=== PATIENT | female | born 1950 | race Caucasian/White ===

== ENCOUNTER 2016-09-20 23:00 | Inpatient (IN) | payer MEDICARE ==
--- NOTE | ~2016-09-20 | DS ---
Discharge Summary [facility] [address] [place]. [address] NAME: LUIS ALFREDO KHAN : 48 STATUS : DIS IN PAT#: [id number] AGE: 65 ADM/REG DATE : 09/21/16 MR#: [id number] REPORT SERV DATE: 09/24/16 DICTATED BY: MODE AYALA DATE: 09/23/16 REPORT STATUS : Draft TRANSCRIBED BY: MODL DATE: 09/23/16 ADMISSION DATE: 09/21/2016 DISCHARGE DATE: 09/23/2016 DISCHARGE DIAGNOSES: 1. Acute kidney injury, most likely due to hypotension. 2. Toxic metabolic encephalopathy, most likely due to use of pain medications. 3. No evidence of urinary tract infection by culture. 4. Chronic pain syndrome. 5. Chronic obstructive pulmonary disease. 6. Coronary artery disease. 7. Hypertension. 8. Anxiety disorder. CONSULTANTS DURING THIS HOSPITALIZATION: None. INVASIVE PROCEDURES DONE DURING THIS HOSPITALIZATION: None. BRIEF HISTORY OF PRESENT ILLNESS: The patient is a 65-year-old female, presented with altered mental status and acute kidney injury, so she was admitted. For detailed history and physical exam, please see note dictated by Dr. Wilfrid Ventura on 09/21/2016. HOSPITAL COURSE: After being admitted to the hospital, this patient initially was thought to have a urinary tract infection. So, she was placed on IV Levaquin blood cultures were done, which remained negative. Urine culture was done which showed mixed a 100,000 colony-forming units of bacteria, but no evidence of any significant solitary pathogen. This patient's white count remained normal during this time. She was afebrile during this time as well. So, we have decided to discontinue her Levaquin. She did receive a total of three days of IV Levaquin here in the hospital. This patient's kidney function responded well to IV fluids and her blood pressure remained stable. Her creatinine today is 1.41 down from 2.88. Her BUN has normalized. Her baseline creatinine is about 1.2 to 1.3. She feels well enough. We did discontinue her angiotensin receptor jesenia in light of kidney injury as well as discontinued her Demadex and potassium because she did have hyperkalemia and hyponatremia which have all now resolved. This patient feels back to her baseline. We did discuss with the patient at length that her kidney injury and her hypotension with altered mental status are probably related to use of Demerol and Percocet. This patient was encouraged to follow up with her primary care physician as well as with her pain management physician for further adjustment of pain medications and hopefully decreasing the doses of these medications. Otherwise, she is being discharged in stable condition. DISCHARGE DISPOSITION: Home. DISCHARGE ACTIVITY: As tolerated. DISCHARGE DIET: Low-sodium diet. Discharge Summary [address] [place]. [address] NAME: LUIS ALFREDO KHAN : 48 STATUS : DIS IN PAT#: [id number] AGE: 65 ADM/REG DATE : 09/21/16 MR#: [id number] REPORT SERV DATE: 09/24/16 DICTATED BY: MODE AYALA DATE: 09/23/16 REPORT STATUS : Draft TRANSCRIBED BY: PALAK DATE: 09/23/16 DISCHARGE MEDICATIONS: Aspirin 81 mg once daily, Lipitor 40 mg once at bedtime, Wellbutrin XL 150 mg once daily, Coreg 12.5 mg twice daily, Plavix 75 mg once daily, vitamin B12 of 1000 mcg once daily, Aricept 5 mg p.o. once daily, Flonase one spray each nostril once daily, levothyroxine 125 mcg once daily, Ativan 1 mg three times daily, Singulair 10 mg once daily, Protonix 40 mg once daily, Paxil 30 mg once daily, Spiriva one capsule inhalation once daily, Ambien 5 mg once at bedtime, Demerol 50 mg twice daily, cranberry over-the- counter, Nitrostat 0.4 sublingual p.r.n. for chest pain, torsemide 10 mg once daily, hydralazine 25 mg every eight hours p.r.n. for blood pressure greater than 180 and the diastolic greater than 110, Proventil nebs daily p.r.n. for shortness of breath, stool softener. DISCHARGE FOLLOWUP: With Dr. Tatum in one week. With Dr. Jorge Gill, her pain management physician in two to three weeks. More than 35 minutes spent planning this patient's discharge, reconciling medications, writing prescriptions, discussing hospital care, and follow up with the patient and documenting this discharge. JOJO/PALAK Mode Ayala M.D. / [id number] CC: Dima Gomez MD
--- NOTE | ~2016-09-20 | HP ---
History And Physical [place] [address] [place]. [address] NAME: LUIS ALFREDO KHAN : [birth year] STATUS : ADM IN [facility]#: [id number] AGE: 65 ADM/REG DATE : 09/21/16 MR#: [id number] REPORT SERV DATE: 09/21/16 DICTATED BY: MARIO HAMPTON DATE: 09/21/16 REPORT STATUS : Draft TRANSCRIBED BY: PALAK DATE: 09/21/16 DATE OF ADMISSION: 09/20/2016 PRIMARY EQUIPMENT MECHANIC SPECIALIST: Zaki Calderon M.D., F.A.C.C. CHIEF COMPLAINT: Weakness, dysuria, confusion. HISTORY OF PRESENT ILLNESS: The patient is a 65-year-old female with history of coronary artery disease with prior PCI, complicated by pseudoaneurysm requiring pseudoaneurysm repair as well as hypertension, hyperlipidemia, recurrent urinary tract infections as well as hypothyroidism who presents to the emergency room today with multiple complaints with dysuria, weakness, as well as confusion. The patient was recently admitted to the Hospitalist Service early August of this year for volume overload, ultimately felt to be secondary to hypertensive urgency. The patient was discharged to [facility]. Since her discharge, the patient states that she has been doing well except for the last few days where she has noted some dysuria with urination as well as decreased urinary output and sensation of urinary retention. She has also had intermittent episodes of diarrhea for the past few weeks as well as a three-day history of occasional nausea and vomiting. She states that she has had good oral intake of food and water. Denies any fevers, chest pain, cough, sputum production, abdominal pain. The patient also reports some weakness fatigue and confusion. These are symptoms similar to what she has when she gets a urinary tract infection prompting their presentation to the emergency department. Initial evaluation in the emergency department for a BUN of 42, creatinine 2.8, potassium 6.0. She had urinalysis consist with urinary tract infection. The patient was subsequently admitted to the Hospitalist Service for further evaluation and management. REVIEW OF SYSTEMS: Comprehensive system otherwise negative unless listed in history of present illness. MEDICAL HISTORY: 1. Coronary disease with prior PCI. 2. Peripheral arterial disease with lower extremity revascularization. 3. Hypertension. 4. Hyperlipidemia. 5. Recurrent urinary tract infection. 6. Hypothyroidism. 7. COPD on 2 L of cannula. 8. History of atrial fibrillation, atrial flutter. 9. Neuropathy. 10.History of neurogenic bladder. 11.History of hydroureteronephrosis. 12.Left groin pseudoaneurysm status post repair. History And Physical [place] [address] [place]. [address] NAME: LUIS ALFREDO KHAN : [birth year] STATUS : ADM IN [facility]#: [id number] AGE: 65 ADM/REG DATE : 09/21/16 MR#: [id number] REPORT SERV DATE: 09/21/16 DICTATED BY: MARIO HAMPTON DATE: 09/21/16 REPORT STATUS : Draft TRANSCRIBED BY: PALAK DATE: 09/21/16 SURGICAL HISTORY: 1. Left groin pseudoaneurysm repair. 2. Appendectomy. 3. Cholecystectomy. 4. Hernia repair surgery. 5. Lumbar spinal fusion. ALLERGIES: ARE SULFA DRUGS, MORPHINE, AND CODEINE. HOME MEDICATIONS: 1. Albuterol one inhalation daily p.r.n. 2. Aspirin 81 mg daily. 3. Atorvastatin 40 mg at bedtime. 4. Wellbutrin 150 mg daily. 5. Carvedilol 12.5 mg b.i.d. 6. Plavix 75 mg daily. 7. Vitamin B12 1000 mcg daily. 8. Aricept 5 mg at bedtime. 9. Flonase one spray nasal daily. 10.Hydralazine 25 mg q.8 hours. 11.Synthroid 125 mcg daily. 12.Ativan 1 mg t.i.d. 13.Demerol 50 mg b.i.d. 14.Singulair 10 mg daily. 15.Nitroglycerin 0.4 mg sublingual p.r.n. 16.Percocet 10/325 one tab q.4 hours p.r.n. 17.Protonix 40 mg daily. 18.Paxil 30 mg daily. 19.Potassium chloride 20 mEq daily. 20.Spiriva one cap inhalation daily. 21.Demadex 10 mg daily. 22.Cranberry [id number] one tab daily. 23.Stool softener. 24.Diovan 320 mg daily. 25.Ambien 5 mg at bedtime. SOCIAL HISTORY: She denies any tobacco, alcohol, or illicits. FAMILY MEDICAL HISTORY: Notable for coronary artery disease as well as cancer in the immediate family members. LABS AND IMAGIN. White count 6.8, hemoglobin 13.3, hematocrit 41.3, and platelet count 241,000. 2. Sodium is 137, potassium 6.0, chloride 101, carbon dioxide 25, BUN 42, creatinine 2.8, glucose is 90, calcium is 8.5. 3. Urinalysis, specific gravity is 1.011 and hazy with moderate leukocyte esterase with 82 white blood cells per high-powered field with five epithelial cells. Lactic acid is History And Physical [place] [address] [place]. [address] NAME: LUIS ALFREDO KHAN : [birth year] STATUS : ADM IN [facility]#: [id number] AGE: 65 ADM/REG DATE : 09/21/16 MR#: [id number] REPORT SERV DATE: 09/21/16 DICTATED BY: MARIO HAMPTON DATE: 09/21/16 REPORT STATUS : Draft TRANSCRIBED BY: PALAK DATE: 09/21/16 1.7. 4. EKG per my review shows normal sinus rhythm with no evidence inferior Q-waves. She has some very mild T-wave prominence and possible peaking primarily in lead 1. 5. Chest x-ray per my review shows no acute cardiopulmonary abnormality. Does show some mild cardiomegaly. PHYSICAL EXAMINATION: VITAL SIGNS: Temperature is 98.6 degrees Fahrenheit, pulse is 102, respirations 16, saturating 97% on room air. Blood pressure 112/62. GENERAL: The patient is awake, alert, in no acute distress. Resting comfortably. She is a well-developed, well-nourished, elderly female. HEENT: Atraumatic and normocephalic. Slightly dry mucous membranes. Pupils are equal, round, reactive to light and accommodation. Extraocular muscles are intact. No scleral icterus. NECK: No jugular venous distention. No carotid bruits. CARDIAC: Regular rate and rhythm. No murmurs, rubs, or gallops. Normal S1, S2. LUNGS: Clear to auscultation bilaterally. No wheezes, rhonchi, or crackles. ABDOMEN: Obese, soft, nontender, nondistended. Good bowel sounds. No rebound, guarding, or rigidity. EXTREMITIES: Warm and well perfused with trace pedal edema. Skin is warm and dry. PSYCH: Affect appropriate. NEURO: Alert, oriented x3. Cranial nerves 2 through 12 grossly intact. Speech is normal. Gait not assessed. ASSESSMENT AND PLAN: This is a 65-year-old female, who presents with symptoms of dysuria, weakness, and confusion found to have evidence of urinary tract infection as well as acute kidney injury and hyperkalemia. PROBLEM LIST: 1. Acute kidney injury. 2. Hyperkalemia. 3. Urinary tract infection. 4. Encephalopathy. 5. Hypertension. PLAN: 1. Acute kidney injury. Etiology is unclear at this time. The patient does report some diarrhea and vomiting, concern for dehydration from GI losses. She also reports some symptoms of urinary retention as well as dysuria, also possibly contributing to her acute kidney injury. We will hold nephrotoxic medications including her diuretic and angiotensin receptor jesenia. Provide IV fluid hydration. Checking urine lytes as well as renal ultrasound. 2. Hyperkalemia, the patient may have some very mild T-wave changes on her EKG. We are temporizing in the emergency department with calcium gluconate, insulin glucose, and an amp of sodium bicarb. We will place her on IV fluid hydration and hold her potassium chloride supplementation as well as angiotensin receptor jesenia. Provide cardiac telemetry monitoring. 3. Urinary tract infection. The patient received IV Rocephin here in the emergency History And Physical [address] [address] NAME: LUIS ALFREDO KHAN : [birth year] STATUS : ADM IN [facility]#: [id number] AGE: 65 ADM/REG DATE : 09/21/16 MR#: [id number] REPORT SERV DATE: 09/21/16 DICTATED BY: MARIO HAMPTON DATE: 09/21/16 REPORT STATUS : Draft TRANSCRIBED BY: MODRhett DATE: 09/21/16 department. We will switch this over to IV Levaquin as review of her prior culture results shows that Levaquin will treat the Enterococcus faecalis as well as Klebsiella oxytoca and Proteus vulgaris that have grown in recent urine cultures. Followup urine culture here. 4. Encephalopathy, the patient and both state that her symptoms are very consistent with prior urinary tract infections. We will check a thyroid function studies, ammonia level, as well as a vitamin B12, try to limit sedating medications as much as possible. However, the patient is already adamantly asking for pain medicines for her chronic lower back pain. 5. Hypertension, continue patient's home antihypertensives except for her H2 receptor jesenia. We will place the patient on IV hydralazine p.r.n. 6. DVT prophylaxis heparin subcu. CODE STATUS: The patient wished to be full code. JCB/MODL Mario Hampton MD / [id number] CC: MD Zaki Melendez M.D., F.A.C.C.
[~2016-09-20 23:00] MED LIST: AMB10 PO; AMB5 PO; APRES25 PO; ARICEPT5 PO; ASAB PO; ATIVAN2 MG PO; ATV1 PO; B121000P IV; CATPATCH1 TOP; CEFT5 PO; CELEXA40 MG PO; CIP5 PO; COMBIVENT INH; COREG12 PO; COREG3 PO; COREG6 PO; CRANBERRY OTC PO; CRANBERRY PO; CRANBERY450 MG PO; CYANO1000T PO; CYTO5 PO; DEMA10T PO; DIOV160 PO; DIOVAN PO; DIOVAN320 MG PO; DITRO5 PO; FLONASE NAS; FOLIC PO; IMOD PO; INDO50 PO; KAPIDEX60 MG PO; KLOR-CON M2020 MEQ PO; L20 PO; L40 PO; L80 PO; LEUCOVOR CA5 MG PO; LEVOTHYROXIN100 MCG PO; LEVOTHYROXIN175 MCG PO; LIPITOR40 PO; LOPID6 PO; MACROBID PO; MAGOX4 PO; MEP50TAB PO; MUCINEX600 MG PO; NEXIUM40 PO; NITROFURANTOIN; NITROSTAT0.4 MG SL; NORV10 PO; NORV5 PO; PAX20 PO; PAXIL30 MG PO; PHENERGAN PO; PLAVIX PO; POTASSIUM; PR25 PO; PRILO PO; PRILOSEC40 MG PO; PROTONIX PO; PROVENTSOL INH; REG PO; SINGULAIR1 PO; SOMATAB PO; SPIRIVA INH; STOOL SOFTENER PO; SYN125 PO; SYNTHROID175 MCG PO; SYNTHROID200 MCG PO; TESSALON200 MG PO; TRAZ100 PO; TRAZODONE PO; TYLENOL 8 HR650 MG PO; VIST50 PO; VITD PO; WELL75 PO; WELLXL300 PO; XANAX2 MG PO; ZOCOR20 PO; ZOCOR40 PO
[2016-09-21 01:21] LABS: MEAN CORPUS HGB CONC 32.2 g/dL (32.0-36.0); MEAN CORPUSCULAR HEMOGLOB 30.2 pg (26.0-34.0); MEAN CORPUSCULAR VOLUME 93.7 fL (80-100); MEAN PLATELET VOLUME 9.6 fL (9.2-13.0); PLATELET COUNT 241 10/3/uL (150-400); RBC DISTRIBUTION WIDTH 14.5 % (12.0-16.0); WHITE BLOOD CELLS 6.8 10/3/uL (4.5-10.5)
[2016-09-21 01:22] LABS: ASCORBIC ACID (UR NOT ORDER) NEG (NEG); BILIRUBIN, URINE NEGATIVE (NEG); ER URINALYSIS TAT 0 Hrs 00 Mins; KETONE, URINE NEGATIVE (NEG); LEUKOCYTE ESTERASE(NOT OR MOD (NEG); NITRITE (URINE) NEG (NEG); WBC (NOT ORDERED) (RFLEX) 82 (0-5)
[2016-09-21 01:23] LABS: HEMATOCRIT 41.3 % (36.0-48.0); HEMOGLOBIN 13.3 g/dL (12.0-16.0); RED CELL COUNT 4.41 10/6/uL (4.0-5.6)
[2016-09-21 01:39] LABS: CALCIUM, SERUM 8.5 MG/DL (8.5-10.4); CHLORIDE, SERUM 101 MMOL/L (96-112); DIRECT BILIRUBIN 0.1 MG/DL (0.0-0.4); GLUCOSE, SERUM 90 MG/DL (60-99); INDIRECT BILIRUBIN(NOT ORDER) 0.2 MG/DL (0.1-0.9)
[2016-09-21 01:40] LABS: BUN (BLOOD UREA NITROGEN) 42 MG/DL (6-23); CO2 (CARBON DIOXIDE) 25 MMOL/L (24-34); CREATININE 2.88 MG/DL (0.55-1.02); GFR AFRICAN AMERICAN 19 ML/MIN (>=60); GFR NON AFRICAN AMERICAN 16 ML/MIN (>=60); LACTATE 1.7 MMOL/L (0.3-2.4); SODIUM, SERUM 137 MMOL/L (135-148); TOTAL BILIRUBIN 0.3 MG/DL (0-1.2)
[2016-09-21 01:44] LABS: BAND NEUTROPHILS 1 %; EOSINOPHILS 4 %; EOSINOPHILS ABSOLUTE (CALC) 0.27 10/3/uL (0.0-0.53); LYMPHOCYTES 20 %; LYMPHOCYTES ABSOLUTE (CALC) 1.36 10/3/uL (0.67-4.30); MONOCYTES 5 %; MONOCYTES ABSOLUTE (CALC) 0.34 10/3/uL (0.21-1.20); NEUTROPHILS ABSOLUTE (CALC) 4.83 10/3/uL (2.02-8.40); SEGMENTED NEUTROPHIL (0) 70 %; TOTAL NUCLEATED CELLS 100
[2016-09-21 01:45] LABS: DIFFERENTIAL ORDERED YES
[2016-09-21] MEDS ORDERED: PERCOCET 10/3251 TAB PO (03:59)
[2016-09-21 09:45] LABS: FREE T4 1.01 NG/DL (0.76-1.46)
[2016-09-21 09:46] LABS: FOLATE 13.4 NG/ML (>5.2); ULTRASENSITIVE TSH 1.52 MCIU/ML (0.358-3.740)
[2016-09-21 12:22] LABS: BASOPHILS 0.5 %; BASOPHILS ABSOLUTE 0.03 10/3/uL (0.0-0.16); EOSINOPHILS ABSOLUTE 0.29 10/3/uL (0.0-0.53); HEMATOCRIT 39.8 % (36.0-48.0); HEMOGLOBIN 12.9 g/dL (12.0-16.0); IMMATURE GRANULOCYTES 0.2 %; IMMATURE GRANULOCYTES ABSOLUTE 0.01 10/3/uL (0.0-0.11); LYMPHOCYTES 28.1 %; LYMPHOCYTES ABSOLUTE 1.62 10/3/uL (0.67-4.30); MEAN CORPUS HGB CONC 32.4 g/dL (32.0-36.0); MEAN CORPUSCULAR VOLUME 92.6 fL (80-100); MEAN PLATELET VOLUME 10.2 fL (9.2-13.0); MONOCYTES 5.9 %; MONOCYTES ABSOLUTE 0.34 10/3/uL (0.21-1.20); NEUTROPHILS 60.3 %; NEUTROPHILS ABSOLUTE 3.48 10/3/uL (2.02-8.40); RBC DISTRIBUTION WIDTH 14.4 % (12.0-16.0); WHITE BLOOD CELLS 5.8 10/3/uL (4.5-10.5)
[2016-09-21 12:23] LABS: MANUAL DIFF NO %; PLATELET COUNT 148 10/3/uL (150-400)
[2016-09-21 12:32] LABS: CALCIUM, SERUM 8.7 MG/DL (8.5-10.4); CHLORIDE, SERUM 104 MMOL/L (96-112); CO2 (CARBON DIOXIDE) 24 MMOL/L (24-34); PHOSPHORUS, SERUM 3.9 MG/DL (2.5-4.5); POTASSIUM, SERUM 5.4 MMOL/L (3.5-5.3); SODIUM, SERUM 137 MMOL/L (135-148)
[2016-09-21 12:33] LABS: BUN (BLOOD UREA NITROGEN) 35 MG/DL (6-23); CREATININE 2.26 MG/DL (0.55-1.02); GFR AFRICAN AMERICAN 25 ML/MIN (>=60); GFR NON AFRICAN AMERICAN 22 ML/MIN (>=60); GLUCOSE, SERUM 115 MG/DL (60-99)
[2016-09-22 08:22] LABS: ALBUMIN 2.7 G/DL (3.5-5.0); CHLORIDE, SERUM 109 MMOL/L (96-112); CO2 (CARBON DIOXIDE) 26 MMOL/L (24-34); CREATININE 2.08 MG/DL (0.55-1.02); GFR AFRICAN AMERICAN 28 ML/MIN (>=60); GFR NON AFRICAN AMERICAN 24 ML/MIN (>=60); POTASSIUM, SERUM 4.5 MMOL/L (3.5-5.3); SODIUM, SERUM 143 MMOL/L (135-148)
[2016-09-22 08:23] LABS: BUN (BLOOD UREA NITROGEN) 25 MG/DL (6-23); GLUCOSE, SERUM 88 MG/DL (60-99)
[2016-09-22 09:24] LABS: BASOPHILS 0.8 %; BASOPHILS ABSOLUTE 0.04 10/3/uL (0.0-0.16); EOSINOPHILS 4.4 %; EOSINOPHILS ABSOLUTE 0.21 10/3/uL (0.0-0.53); HEMATOCRIT 37.1 % (36.0-48.0); HEMOGLOBIN 11.9 g/dL (12.0-16.0); IMMATURE GRANULOCYTES 0.2 %; IMMATURE GRANULOCYTES ABSOLUTE 0.01 10/3/uL (0.0-0.11); LYMPHOCYTES 33.8 %; LYMPHOCYTES ABSOLUTE 1.62 10/3/uL (0.67-4.30); MANUAL DIFF NO %; MEAN CORPUS HGB CONC 32.1 g/dL (32.0-36.0); MEAN CORPUSCULAR VOLUME 93.5 fL (80-100); MEAN PLATELET VOLUME 9.7 fL (9.2-13.0); MONOCYTES 9.6 %; MONOCYTES ABSOLUTE 0.46 10/3/uL (0.21-1.20); NEUTROPHILS 51.2 %; NEUTROPHILS ABSOLUTE 2.45 10/3/uL (2.02-8.40); PLATELET COUNT 200 10/3/uL (150-400); RBC DISTRIBUTION WIDTH 14.6 % (12.0-16.0); RED CELL COUNT 3.97 10/6/uL (4.0-5.6); WHITE BLOOD CELLS 4.8 10/3/uL (4.5-10.5)
[2016-09-23 09:27] LABS: ALBUMIN 2.7 G/DL (3.5-5.0); BUN (BLOOD UREA NITROGEN) 15 MG/DL (6-23); CALCIUM, SERUM 7.9 MG/DL (8.5-10.4); CHLORIDE, SERUM 112 MMOL/L (96-112); CO2 (CARBON DIOXIDE) 28 MMOL/L (24-34); CREATININE 1.41 MG/DL (0.55-1.02); GFR AFRICAN AMERICAN 45 ML/MIN (>=60); GFR NON AFRICAN AMERICAN 39 ML/MIN (>=60); GLUCOSE, SERUM 108 MG/DL (60-99); PHOSPHORUS, SERUM 3.1 MG/DL (2.5-4.5); POTASSIUM, SERUM 4.2 MMOL/L (3.5-5.3); SODIUM, SERUM 145 MMOL/L (135-148)
[2017-01-20] MEDS ORDERED: WELL75 PO (16:40)
[2017-01-20] MEDS ORDERED: PROTONIX PO (16:40)
[2017-01-20] MEDS ORDERED: PLAVIX PO (16:40)
[2017-01-20] MEDS ORDERED: PERCOCET 10/3251 TAB PO ×2 (16:40→16:41)
[2017-01-20] MEDS ORDERED: PAXIL30 MG PO (16:41)
[2017-01-20] MEDS ORDERED: VIBRATAB100 MG PO (16:41)
[2017-01-20] MEDS ORDERED: ATV1 PO (16:41)
[2017-01-20] MEDS ORDERED: HALF81 PO (16:42)
[2017-01-20] MEDS ORDERED: CRANBERRY500 MG PO (16:42)
[2017-01-20] MEDS ORDERED: SYN125 PO (16:42)
[2017-01-20] MEDS ORDERED: SINGULAIR1 PO (16:42)
[2017-01-20] MEDS ORDERED: APRES25 PO (16:44)
[2017-01-20] MEDS ORDERED: COREG12 PO (16:44)
[2017-01-20] MEDS ORDERED: CYANO1000T PO (16:45)
[2017-01-20] MEDS ORDERED: FOLIC ACID PO (16:45)
[2017-01-20] MEDS ORDERED: LIPITOR40 PO (16:46)
[2017-01-20] MEDS ORDERED: AMB5 PO (16:46)
[2017-01-20] MEDS ORDERED: ARICEPT5 PO (16:46)
[2017-01-20] MEDS ORDERED: NITROSTAT0.4 MG SL (16:48)
[2017-01-20] MEDS ORDERED: DEMA10T PO (16:48)
[2017-01-20] MEDS ORDERED: FLONASE NAS (16:48)
[2017-01-20] MEDS ORDERED: ACET500CAP PO (16:49)
[2017-01-20] MEDS ORDERED: NYSTATPOW TOP (16:50)
[2017-01-20] MEDS ORDERED: MYCOSOINT TOP (16:50)
[2017-01-24] MEDS ORDERED: NORV5 PO (09:55)
[2017-01-24] MEDS ORDERED: CEFT5 PO (09:55)
[2017-01-24] MEDS ORDERED: MIRALAX POWDER1 PKT PO (10:00)
[2017-01-24] MEDS ORDERED: MELATONIN5 M1 PO (10:04)
[2017-02-03] MEDS ORDERED: DEMA10T PO (11:45)
[2017-02-03] MEDS ORDERED: NITROSTAT0.4 MG PO (11:45)
[2017-02-03] MEDS ORDERED: AMB5 PO (11:46)
[2017-02-03] MEDS ORDERED: ATV1 PO (11:46)
[2017-02-03] MEDS ORDERED: SINGULAIR1 PO (11:47)
[2017-02-03] MEDS ORDERED: PROTONIX PO (11:47)
[2017-02-03] MEDS ORDERED: COREG12 PO (11:47)
[2017-02-03] MEDS ORDERED: LIPITOR40 PO (11:47)
[2017-02-03] MEDS ORDERED: MONODOX100 MG PO (11:47)
[2017-02-03] MEDS ORDERED: ENDOCET1 TA3 PO (11:48)
[2017-02-03] MEDS ORDERED: PLAVIX PO (11:48)
[2017-02-03] MEDS ORDERED: SYN125 PO (11:48)
[2017-02-03] MEDS ORDERED: MELATONIN5 M1 PO (11:49)
[2017-02-03] MEDS ORDERED: VITAMIN B-121000 MC1 PO (11:49)
[2017-02-03] MEDS ORDERED: FOLIC ACID400 MC1 PO (11:49)
[2017-02-03] MEDS ORDERED: PAXIL30 MG PO (11:50)
[2017-02-03] MEDS ORDERED: CRANBERRY500 MG PO (11:50)
[2017-02-03] MEDS ORDERED: ASAB PO (11:51)
[2017-02-03] MEDS ORDERED: ACET500CAP PO (11:54)
[2017-02-03] MEDS ORDERED: FLONASE NAS (11:55)
[2017-02-03] MEDS ORDERED: SPIRIVA INH (11:56)
[2017-02-03] MEDS ORDERED: MIRALAX POWDER1 PKT PO (11:56)
[2017-02-03] MEDS ORDERED: WELL75 PO (11:59)
[2017-02-03] MEDS ORDERED: PAX20 PO (11:59)
[2017-02-03] MEDS ORDERED: NYSTATPOW TOP (12:00)
[2017-02-03] MEDS ORDERED: ARICEPT5 PO (12:02)
[2017-02-03] MEDS ORDERED: APRES25 PO (12:02)
[2017-02-05] MEDS ORDERED: ATEN25 (13:49)
[2017-02-08] MEDS ORDERED: ATV1 PO (16:16)
[2017-02-08] MEDS ORDERED: ATEN50 PO (16:16)
[2017-02-08] MEDS ORDERED: ARICEPT5 PO (16:16)
[2017-02-08] MEDS ORDERED: AMB5 PO (16:16)
[2017-02-08] MEDS ORDERED: FOLIC ACID400 MC1 PO (16:17)
[2017-02-08] MEDS ORDERED: LIPITOR40 PO (16:17)
[2017-02-08] MEDS ORDERED: ZOFRAN4 PO (16:19)
[2017-02-08] MEDS ORDERED: PERCOCET 10/3251 TAB PO (16:19)
[2017-02-08] MEDS ORDERED: PLAVIX PO (16:19)
[2017-02-08] MEDS ORDERED: LEVOTHYROXIN125 MCG PO (16:20)
[2017-02-08] MEDS ORDERED: SINGULAIR1 PO (16:20)
[2017-02-08] MEDS ORDERED: PROTONIX PO (16:20)
[2017-02-08] MEDS ORDERED: CRANBERRY500 MG PO (16:20)
[2017-02-08] MEDS ORDERED: DEMA10T PO (16:20)
[2017-02-08] MEDS ORDERED: WELL75 PO (16:21)
[2017-02-08] MEDS ORDERED: CYANO1000T PO (16:21)
[2017-02-08] MEDS ORDERED: ACET500CAP PO (16:21)
[2017-02-08] MEDS ORDERED: PAX20 PO (16:21)
[2017-02-08] MEDS ORDERED: NYSTATPOW TOP (16:22)
[2017-02-08] MEDS ORDERED: SPIRIVA INH (16:22)
[2017-02-08] MEDS ORDERED: FLONASE NAS (16:28)
[2017-02-08] MEDS ORDERED: VIBRATAB100 MG PO (16:30)
[2017-02-08] MEDS ORDERED: APRES25 PO (16:30)
[2017-02-08] MEDS ORDERED: MIRALAX POWDER1 PKT PO (16:30)
[2017-02-08] MEDS ORDERED: HALF81 PO (16:30)
[2017-02-08] MEDS ORDERED: MELATONIN5 M1 PO (16:31)
[2017-02-08] MEDS ORDERED: NITROSTAT0.4 MG SL (16:31)
[2017-02-10] MEDS ORDERED: AUG875 PO (16:35)
[2017-02-14] MEDS ORDERED: AUG875 PO (17:39)
[2017-02-15] MEDS ORDERED: NORV5 PO (17:12)
[2017-03-24] MEDS ORDERED: ABILIFY5 PO (13:34)
[2017-04-11] MEDS ORDERED: AMB5 PO (23:00)
[2017-04-11] MEDS ORDERED: PAX20 PO (23:01)
[2017-04-12] MEDS ORDERED: SINGULAIR1 PO (14:40)
[2017-04-12] MEDS ORDERED: DEMA10T PO (14:40)
[2017-04-14] MEDS ORDERED: DURICEF PO (11:17)
[2017-04-14] MEDS ORDERED: MIRALAX POWDER1 PKT PO (11:18)
[2017-04-14] MEDS ORDERED: NEUR100 PO (11:19)
== END 2016-09-23 15:44 | disposition home or self-care (01) | DRG 682 ==
LOC: ER 23:00 → 2SO 09-21 04:48
PROVIDERS: Emergency Medicine; Internal Medicine
DX: N17.9 Acute kidney failure, unspecified (principal); G92 Toxic encephalopathy; I95.9 Hypotension, unspecified; J96.10 Chronic respiratory failure, unspecified whether with hypoxia or hypercapnia; E87.1 Hypo-osmolality and hyponatremia; E87.5 Hyperkalemia; J44.9 Chronic obstructive pulmonary disease, unspecified; I48.91 Unspecified atrial fibrillation; I48.92 Unspecified atrial flutter; N39.0 Urinary tract infection, site not specified; T40.2X5A Adverse effect of other opioids, initial encounter; N31.9 Neuromuscular dysfunction of bladder, unspecified; I25.10 Atherosclerotic heart disease of native coronary artery without angina pectoris; I10 Essential (primary) hypertension; E78.5 Hyperlipidemia, unspecified; E03.9 Hypothyroidism, unspecified; G89.4 Chronic pain syndrome; F41.9 Anxiety disorder, unspecified; Z95.1 Presence of aortocoronary bypass graft; Z98.890 Other specified postprocedural states; Z82.49 Family history of ischemic heart disease and other diseases of the circulatory system; Z80.9 Family history of malignant neoplasm, unspecified; Z95.5 Presence of coronary angioplasty implant and graft
CPT/HCPCS: 71010; 76775; 80048; 80069; 81001; 82140; 82247; 82248; 82570; 82607; 82746; 83605; 83935; 84300; 84439; 84443; 85007; 85025; 85027; 87040; 87086; 93005; 96365; 96375; 99285; A9270-GY; J0610; J1956; J2405

== ENCOUNTER 2016-10-05 09:23 | Observation (INO) | payer MEDICARE, OTHER ==
--- NOTE | ~2016-10-05 | DS ---
Discharge Summary [facility] [address] [place]. [address] NAME: LUIS ALFREDO KHAN : 48 STATUS : DIS Kathleen PAT#: [id number] AGE: 65 ADM/REG DATE : 10/05/16 MR#: [id number] REPORT SERV DATE: 10/07/16 DICTATED BY: JR. MOSER WILLIAM JOHN DATE: 10/06/16 REPORT STATUS : Draft TRANSCRIBED BY: PALAK DATE: 10/06/16 ADMISSION DATE: 10/05/2016 DISCHARGE DATE: 10/06/2016 DISCHARGE DIAGNOSES: 1. Altered mental status. 2. Urinary tract infection. 3. Coronary artery disease with a history of percutaneous coronary intervention. 4. Chronic peripheral arterial disease. 5. Hypertension. 6. Hyperlipidemia. 7. Oxygen-dependent chronic obstructive pulmonary disease. 8. Hypokalemia. OPERATIONS/PROCEDURES AND TREATMENTS: Include: 1. Portable chest x-ray done 10/05/2016, which showed stable cardiac size with increased pulmonary venous congestion and left basilar atelectasis. 2. Urine culture done 10/05/2016, which was sterile at one day. 3. Urinalysis done on presentation, which showed 11 white blood cells per high-power field with small leukocyte esterase and negative nitrite. DISCHARGE MEDICATIONS: Include: 1. Aspirin 81 daily. 2. Lipitor 40 mg daily. 3. Wellbutrin 75 twice a day. 4. Coreg 12.5 twice a day. 5. Plavix 75 daily. 6. Vitamin B12 1000 mcg orally daily. 7. Aricept 5 mg daily. 8. Flonase nasal spray daily. 9. Synthroid 125 mcg daily. 10.Ativan 1 mg t.i.d. 11.Singulair 10 mg daily. 12.Protonix 40 daily. 13.Paxil 30 daily. 14.Spiriva HandiHaler as needed. 15.Demadex 10 daily. 16.Ambien 5 mg at the hour of sleep. 17.Nitroglycerin 0.4 mg sublingually as needed. 18.Hydralazine 25 mg every eight hours as needed. 19.Albuterol metered-dose inhaler one puff as needed. 20.Levaquin 750 mg orally daily for four days. 21.Percocet 5/325 one tablet every six hours as needed, dispensing 20 with no refills. 22.Norvasc 5 mg orally daily. HOSPITAL COURSE: The patient is a very pleasant 65-year-old white female, brought in by her Discharge Summary [address] [address] NAME: LUIS ALFREDO KHAN : 48 STATUS : DIS Kathleen PAT#: [id number] AGE: 65 ADM/REG DATE : 10/05/16 MR#: [id number] REPORT SERV DATE: 10/07/16 DICTATED BY: JR. MOSER WILLIAM JOHN DATE: 10/06/16 REPORT STATUS : Draft TRANSCRIBED BY: PALAK DATE: 10/06/16 because she was sleepier than usual and confused. The patient has been in and out of the hospital multiple times with various problems, including a femoral pseudoaneurysm, which was repaired as well as a wound. She has had encephalopathy in the setting of chronic pain syndrome on multiple sedating medicines. The patient's workup was significant for 11 white blood cells per high-power field. She was admitted to the hospital for urinary tract infection, started on Rocephin. Cultures so far negative. The patient is on Demerol at home. Her Demerol was withheld. On hospital day #2, the patient's mental status cleared. She felt she was stable for discharge home. I discussed sedating medicines with the family at length. Their desire is to wean the patient off Demerol and start her on Percocet at decreasing doses. I have written a prescription for six days worth of Percocet 5/325 until they see her pain clinic doctor next Tuesday. The patient's antibiotic was switched to Levaquin 750 mg for four more doses. In addition, the patient had fairly poorly controlled hypertension. I added Norvasc 5 mg orally daily. The patient will follow up with her primary care physician, Dr. Tatum in one to two weeks. For discharge exam and laboratory, please see daily progress note. DISCHARGE DIET: Regular. ACTIVITY: As tolerated. HUA/PALAK Cliff Moser Jr, MD / [id number] CC: Cliff Moser Jr, MD
--- NOTE | ~2016-10-05 | HP ---
History And Physical [address] [place]. [address] NAME: LUIS ALFREDO KHAN : 48 STATUS : ADM Kathleen PAT#: [id number] AGE: 65 ADM/REG DATE : 10/05/16 MR#: [id number] REPORT SERV DATE: 10/05/16 DICTATED BY: LISSET JIN DATE: 10/05/16 REPORT STATUS : Draft TRANSCRIBED BY: MODRhett DATE: 10/05/16 DATE OF ADMISSION: 10/05/2016 CHIEF COMPLAINT: Confusion. HISTORY OF PRESENT ILLNESS: The patient is a very pleasant, 65-year-old white female, who reports she was brought here by her who thought she was a little bit sleepier than usual and confused. She was just discharged from the hospital back on September 23 following a stay for metabolic encephalopathy. At that time, it was thought secondary to pain medications. She was ultimately discharged. Her reported that she had some increasing sleepiness and confusion over the last two day, although she denies it. She denies fevers or chills. She states she has not had any abdominal pain or chest pain. She denies cough, denies congestion, states she has been a little bit more sleepy, denies dysuria. Really, no real focal complaints today. PAST MEDICAL HISTORY: 1. CAD, history of PTCI. 2. Peripheral arterial disease. 3. Hypertension. 4. Hyperlipidemia. 5. Urinary tract infection. 6. Hypothyroidism. 7. COPD, on 2 L of O2. 8. Atrial fibrillation. 9. Peripheral neuropathy. 10.Neurogenic bladder. 11.Hydroureteronephrosis. 12.Left groin pseudoaneurysm following a cath status post repair. 13.Polypharmacy. 14.Anxiety. 15.Recent toxic metabolic encephalopathy. PAST SURGICAL HISTORY: 1. Left groin pseudoaneurysm repair. 2. Appendectomy. 3. Cholecystectomy. 4. Hernia repair. 5. Lumbar spinal fusion. ALLERGIES: SULFA, MORPHINE, AND CODEINE. HOME MEDICATIONS: 1. Albuterol inhaler. 2. Aspirin 81 daily. 3. Lipitor 40 daily. 4. Wellbutrin XL 150 daily. History And Physical [address] [place]. [address] NAME: LUIS ALFREDO KHAN : 48 STATUS : ADM Kathleen PAT#: [id number] AGE: 65 ADM/REG DATE : 10/05/16 MR#: [id number] REPORT SERV DATE: 10/05/16 DICTATED BY: LISSET JIN DATE: 10/05/16 REPORT STATUS : Draft TRANSCRIBED BY: PALAK DATE: 10/05/16 5. Carvedilol 12.5 b.i.d. 6. Plavix 75 daily. 7. Vitamin B12 daily. 8. Aricept 5 daily. 9. Flonase daily. 10.Hydralazine 25 q.8 hours. 11.Synthroid 125 daily. 12.Ativan one p.o. t.i.d. 13.Demerol 50 b.i.d. 14.Singulair 10 daily. 15.Nitroglycerin p.r.n. 16.Percocet 10/325 q.6 hours. 17.Protonix 40 daily. 18.Paxil 30 daily. 19.Potassium chloride daily. 20.Spiriva once daily. 21.Demadex 10 daily. 22.Cranberry daily. 23.Stool softener daily. 24.Ambien 5 at bedtime. SOCIAL HISTORY: She denies tobacco, she quit smoking about two years ago, but smoked two packs per day for 40+ years. No alcohol or illicits. She is . FAMILY HISTORY: Positive for CAD and also cancer. REVIEW OF SYSTEMS: A full ten-point review of systems obtained. Pertinent positives already mentioned in the HPI. PHYSICAL EXAMINATION: VITAL SIGNS: BP 170/79, saturations 96% on 2 L, temperature 98.9, pulse 58, respiratory rate 20. GENERAL: Morbidly obese white female HEENT: Normocephalic, atraumatic. Throat is clear. NECK: Supple. HEART: Regular rate and rhythm. LUNGS: Grossly clear. ABDOMEN: Soft, nontender, nondistended. EXTREMITIES: Warm and dry. Skin is intact. She has 2+ pulses at the feet. She does not have any significant peripheral edema. NEURO: She is alert. She is oriented to person, place, and time. PSYCH: She is appropriate. Her affect is normal. She has symmetrical strength and tone in all four extremities. LABORATORY AND X-RAY: Sodium 144, potassium 3.3, chloride 105, CO2 33, BUN and creatinine 11 and 1.20. Glucose 126, alcohol less than 3. Mag 1.7. Tylenol 3.2. Salicylate, negative. History And Physical [address] [place]. [address] NAME: LUIS ALFREDO KHAN : 48 STATUS : ADM Kathleen PAT#: [id number] AGE: 65 ADM/REG DATE : 10/05/16 MR#: [id number] REPORT SERV DATE: 10/05/16 DICTATED BY: LISSET JIN DATE: 10/05/16 REPORT STATUS : Draft TRANSCRIBED BY: PALAK DATE: 10/05/16 Troponin 0.03. LFTs were not done. Urine drug screen shows tricyclics and benzos. Urinalysis shows 11 whites. Chest x-ray shows cardiomegaly and some possible atelectasis in the left base. EKG shows sinus bradycardia. Current vitals: Her current blood pressure is 154/57. ASSESSMENT/PLAN: 1. Urinary tract infection with possible mild encephalopathy, although somewhat improved at this point. I am going to treat her in observation overnight with some Rocephin. We will hold her Demerol. We will continue her other medications. I suspect some of this too was due to polypharmacy. She could likely go home in the morning if she does well. 2. Coronary artery disease with history percutaneous coronary intervention. 3. Peripheral arterial disease history, stable, chronic. 4. Hypertension. Continue home medications. 5. Hyperlipidemia. Continue home medications. 6. Chronic obstructive pulmonary disease, on 2 L of O2. Continue O2. She does have some mild hypercapnia, but this is not new and she is well compensated. 7. Peripheral neuropathy. 8. Deep venous thrombosis prophylaxis with subcutaneous heparin. 9. Hypokalemia, replace. 10.Likely chronic kidney disease. Her creatinine really is not all from her baseline. She was 1.4 on 09/23; today, she is 1.25. We will simply follow this. 11.Disposition, pending above. CRISTOFER/PALAK Lisset Jin M.D. / [id number] CC: Cliff Moser Jr, MD Cecil Breetzke, MD
[~2016-10-05 09:23] MED LIST changes: +PERCOCET 10/3251 TAB PO
[2016-10-05 10:14] LABS: BASOPHILS 0.4 %; BASOPHILS ABSOLUTE 0.02 10/3/uL (0.0-0.16); EOSINOPHILS 4.3 %; EOSINOPHILS ABSOLUTE 0.22 10/3/uL (0.0-0.53); HEMATOCRIT 35.6 % (36.0-48.0); HEMOGLOBIN 11.5 g/dL (12.0-16.0); IMMATURE GRANULOCYTES 0.2 %; IMMATURE GRANULOCYTES ABSOLUTE 0.01 10/3/uL (0.0-0.11); LYMPHOCYTES 30.2 %; LYMPHOCYTES ABSOLUTE 1.53 10/3/uL (0.67-4.30); MEAN CORPUS HGB CONC 32.3 g/dL (32.0-36.0); MEAN CORPUSCULAR HEMOGLOB 29.3 pg (26.0-34.0); MEAN CORPUSCULAR VOLUME 90.8 fL (80-100); MEAN PLATELET VOLUME 9.2 fL (9.2-13.0); MONOCYTES 5.9 %; NEUTROPHILS ABSOLUTE 2.99 10/3/uL (2.02-8.40); PLATELET COUNT 193 10/3/uL (150-400); RBC DISTRIBUTION WIDTH 14.4 % (12.0-16.0); RED CELL COUNT 3.92 10/6/uL (4.0-5.6); WHITE BLOOD CELLS 5.1 10/3/uL (4.5-10.5)
[2016-10-05 10:27] LABS: MANUAL DIFF NO %
[2016-10-05 10:27] LABS: ALLENS TEST Pos; BE (BASE EXCESS) 5.7 MEQ/L (0 +/- 2.5); CARBOXYHEMOGLOBIN 1.1 % (0-3); DEVICE NC; HCO3 (ACTUAL BICARBONATE) 31.8 MEQ/L (23-27); HEMOBLOGIN CONTENT 11.9 G/DL (12-16); INSTRUMENT SERIAL # 8087; METHEMOGLOBIN 0.2 % (0-3); O2 CONTENT 15.8 VOL% (18-24); OPERATOR ID 35188; PCO2 (CO2 TENSION) 53 MMHG (35-45); PO2 (O2 TENSION) 77 MMHG (79-93); SAMPLE Arterial; pH 7.39 (7.37-7.43)
[2016-10-05 10:37] LABS: INTERNATIONAL NORMAL RATI 1.1 UNITS (-); PARTIAL THROMBO TIME 28.4 SEC (22.5-37.2); PROTIME (NOT ORD) 14.3 SEC (12.0-14.5)
[2016-10-05 10:42] LABS: ACETAMINOPHEN LEVEL (TYLENOL) 3.2 MCG/ML (10.0-20.0); BUN (BLOOD UREA NITROGEN) 11 MG/DL (6-23); CALCIUM, SERUM 7.9 MG/DL (8.5-10.4); CHLORIDE, SERUM 105 MMOL/L (96-112); CO2 (CARBON DIOXIDE) 33 MMOL/L (24-34); CREATININE 1.25 MG/DL (0.55-1.02); GFR AFRICAN AMERICAN 52 ML/MIN (>=60); GFR NON AFRICAN AMERICAN 45 ML/MIN (>=60); GLUCOSE, SERUM 126 MG/DL (60-99); POTASSIUM, SERUM 3.3 MMOL/L (3.5-5.3); SALICYLATE 1.9 MG/DL (-); SODIUM, SERUM 144 MMOL/L (135-148); TROPONIN I 0.03 NG/ML (<0.05)
[2016-10-05 10:43] LABS: ALCOHOL < 3 MG/DL (0); CHEST PAIN PROFILE TAT 0 Hrs 34 Mins
[2016-10-05 11:24] LABS: ASCORBIC ACID (UR NOT ORDER) NEG (NEG); BILIRUBIN, URINE NEGATIVE (NEG); ER URINALYSIS TAT 0 Hrs 09 Mins; KETONE, URINE NEGATIVE (NEG); LEUKOCYTE ESTERASE(NOT OR SMALL (NEG); NITRITE (URINE) NEG (NEG); WBC (NOT ORDERED) (RFLEX) 11 (0-5)
[2016-10-05 11:40] LABS: AMPHETAMINES (NOT ORD) NEG (NEG); BARBITURATES (NOT ORDERED NEG (NEG); BENZODIAZEPINES (NOT ORD) POS (NEG); CANNABINOIDS (THC) NEG (NEG); COCAINE (NOT ORDERED) NEG (NEG); OPIATES NEG (NEG); PHENCYCLIDINE(PCP) NEG (NEG); TRICYCLICS POS (NEG)
[2016-10-06 04:24] LABS: BASOPHILS 0.3 %; BASOPHILS ABSOLUTE 0.02 10/3/uL (0.0-0.16); EOSINOPHILS 3.3 %; EOSINOPHILS ABSOLUTE 0.21 10/3/uL (0.0-0.53); HEMATOCRIT 36.6 % (36.0-48.0); HEMOGLOBIN 11.9 g/dL (12.0-16.0); IMMATURE GRANULOCYTES 0.2 %; IMMATURE GRANULOCYTES ABSOLUTE 0.01 10/3/uL (0.0-0.11); LYMPHOCYTES 26.9 %; LYMPHOCYTES ABSOLUTE 1.71 10/3/uL (0.67-4.30); MEAN CORPUS HGB CONC 32.5 g/dL (32.0-36.0); MEAN CORPUSCULAR HEMOGLOB 30.1 pg (26.0-34.0); MEAN CORPUSCULAR VOLUME 92.4 fL (80-100); MEAN PLATELET VOLUME 9.3 fL (9.2-13.0); MONOCYTES ABSOLUTE 0.51 10/3/uL (0.21-1.20); NEUTROPHILS 61.3 %; PLATELET COUNT 214 10/3/uL (150-400); RBC DISTRIBUTION WIDTH 14.2 % (12.0-16.0); RED CELL COUNT 3.96 10/6/uL (4.0-5.6); WHITE BLOOD CELLS 6.4 10/3/uL (4.5-10.5)
[2016-10-06 04:28] LABS: MANUAL DIFF NO %
[2016-10-06 04:38] LABS: BUN (BLOOD UREA NITROGEN) 14 MG/DL (6-23); CALCIUM, SERUM 8.6 MG/DL (8.5-10.4); CHLORIDE, SERUM 104 MMOL/L (96-112); CO2 (CARBON DIOXIDE) 31 MMOL/L (24-34); CREATININE 1.16 MG/DL (0.55-1.02); GFR AFRICAN AMERICAN 57 ML/MIN (>=60); GFR NON AFRICAN AMERICAN 49 ML/MIN (>=60); POTASSIUM, SERUM 3.7 MMOL/L (3.5-5.3); SODIUM, SERUM 143 MMOL/L (135-148)
[2016-10-06 04:39] LABS: GLUCOSE, SERUM 97 MG/DL (60-99)
[2016-10-06] MEDS ORDERED: PERCOCET 10/3251 TAB PO (13:51)
[2016-10-06] MEDS ORDERED: NORV5 PO (13:51)
[2016-10-06] MEDS ORDERED: LEVAQUIN750 MG PO (13:51)
[2017-01-20] MEDS ORDERED: PROTONIX PO (16:40)
[2017-01-20] MEDS ORDERED: PLAVIX PO (16:40)
[2017-01-20] MEDS ORDERED: WELL75 PO (16:40)
[2017-01-20] MEDS ORDERED: PERCOCET 10/3251 TAB PO ×2 (16:40→16:41)
[2017-01-20] MEDS ORDERED: ATV1 PO (16:41)
[2017-01-20] MEDS ORDERED: VIBRATAB100 MG PO (16:41)
[2017-01-20] MEDS ORDERED: PAXIL30 MG PO (16:41)
[2017-01-20] MEDS ORDERED: HALF81 PO (16:42)
[2017-01-20] MEDS ORDERED: SINGULAIR1 PO (16:42)
[2017-01-20] MEDS ORDERED: SYN125 PO (16:42)
[2017-01-20] MEDS ORDERED: CRANBERRY500 MG PO (16:42)
[2017-01-20] MEDS ORDERED: COREG12 PO (16:44)
[2017-01-20] MEDS ORDERED: APRES25 PO (16:44)
[2017-01-20] MEDS ORDERED: CYANO1000T PO (16:45)
[2017-01-20] MEDS ORDERED: FOLIC ACID PO (16:45)
[2017-01-20] MEDS ORDERED: ARICEPT5 PO (16:46)
[2017-01-20] MEDS ORDERED: AMB5 PO (16:46)
[2017-01-20] MEDS ORDERED: LIPITOR40 PO (16:46)
[2017-01-20] MEDS ORDERED: DEMA10T PO (16:48)
[2017-01-20] MEDS ORDERED: NITROSTAT0.4 MG SL (16:48)
[2017-01-20] MEDS ORDERED: FLONASE NAS (16:48)
[2017-01-20] MEDS ORDERED: ACET500CAP PO (16:49)
[2017-01-20] MEDS ORDERED: MYCOSOINT TOP (16:50)
[2017-01-20] MEDS ORDERED: NYSTATPOW TOP (16:50)
[2017-01-24] MEDS ORDERED: NORV5 PO (09:55)
[2017-01-24] MEDS ORDERED: CEFT5 PO (09:55)
[2017-01-24] MEDS ORDERED: MIRALAX POWDER1 PKT PO (10:00)
[2017-01-24] MEDS ORDERED: MELATONIN5 M1 PO (10:04)
[2017-02-03] MEDS ORDERED: NITROSTAT0.4 MG PO (11:45)
[2017-02-03] MEDS ORDERED: DEMA10T PO (11:45)
[2017-02-03] MEDS ORDERED: AMB5 PO (11:46)
[2017-02-03] MEDS ORDERED: ATV1 PO (11:46)
[2017-02-03] MEDS ORDERED: COREG12 PO (11:47)
[2017-02-03] MEDS ORDERED: SINGULAIR1 PO (11:47)
[2017-02-03] MEDS ORDERED: PROTONIX PO (11:47)
[2017-02-03] MEDS ORDERED: LIPITOR40 PO (11:47)
[2017-02-03] MEDS ORDERED: MONODOX100 MG PO (11:47)
[2017-02-03] MEDS ORDERED: PLAVIX PO (11:48)
[2017-02-03] MEDS ORDERED: ENDOCET1 TA3 PO (11:48)
[2017-02-03] MEDS ORDERED: SYN125 PO (11:48)
[2017-02-03] MEDS ORDERED: FOLIC ACID400 MC1 PO (11:49)
[2017-02-03] MEDS ORDERED: VITAMIN B-121000 MC1 PO (11:49)
[2017-02-03] MEDS ORDERED: MELATONIN5 M1 PO (11:49)
[2017-02-03] MEDS ORDERED: PAXIL30 MG PO (11:50)
[2017-02-03] MEDS ORDERED: CRANBERRY500 MG PO (11:50)
[2017-02-03] MEDS ORDERED: ASAB PO (11:51)
[2017-02-03] MEDS ORDERED: ACET500CAP PO (11:54)
[2017-02-03] MEDS ORDERED: FLONASE NAS (11:55)
[2017-02-03] MEDS ORDERED: SPIRIVA INH (11:56)
[2017-02-03] MEDS ORDERED: MIRALAX POWDER1 PKT PO (11:56)
[2017-02-03] MEDS ORDERED: PAX20 PO (11:59)
[2017-02-03] MEDS ORDERED: WELL75 PO (11:59)
[2017-02-03] MEDS ORDERED: NYSTATPOW TOP (12:00)
[2017-02-03] MEDS ORDERED: APRES25 PO (12:02)
[2017-02-03] MEDS ORDERED: ARICEPT5 PO (12:02)
[2017-02-05] MEDS ORDERED: ATEN25 (13:49)
[2017-02-08] MEDS ORDERED: ATV1 PO (16:16)
[2017-02-08] MEDS ORDERED: AMB5 PO (16:16)
[2017-02-08] MEDS ORDERED: ARICEPT5 PO (16:16)
[2017-02-08] MEDS ORDERED: ATEN50 PO (16:16)
[2017-02-08] MEDS ORDERED: FOLIC ACID400 MC1 PO (16:17)
[2017-02-08] MEDS ORDERED: LIPITOR40 PO (16:17)
[2017-02-08] MEDS ORDERED: PERCOCET 10/3251 TAB PO (16:19)
[2017-02-08] MEDS ORDERED: PLAVIX PO (16:19)
[2017-02-08] MEDS ORDERED: ZOFRAN4 PO (16:19)
[2017-02-08] MEDS ORDERED: CRANBERRY500 MG PO (16:20)
[2017-02-08] MEDS ORDERED: PROTONIX PO (16:20)
[2017-02-08] MEDS ORDERED: SINGULAIR1 PO (16:20)
[2017-02-08] MEDS ORDERED: LEVOTHYROXIN125 MCG PO (16:20)
[2017-02-08] MEDS ORDERED: DEMA10T PO (16:20)
[2017-02-08] MEDS ORDERED: CYANO1000T PO (16:21)
[2017-02-08] MEDS ORDERED: WELL75 PO (16:21)
[2017-02-08] MEDS ORDERED: ACET500CAP PO (16:21)
[2017-02-08] MEDS ORDERED: PAX20 PO (16:21)
[2017-02-08] MEDS ORDERED: SPIRIVA INH (16:22)
[2017-02-08] MEDS ORDERED: NYSTATPOW TOP (16:22)
[2017-02-08] MEDS ORDERED: FLONASE NAS (16:28)
[2017-02-08] MEDS ORDERED: HALF81 PO (16:30)
[2017-02-08] MEDS ORDERED: MIRALAX POWDER1 PKT PO (16:30)
[2017-02-08] MEDS ORDERED: VIBRATAB100 MG PO (16:30)
[2017-02-08] MEDS ORDERED: APRES25 PO (16:30)
[2017-02-08] MEDS ORDERED: NITROSTAT0.4 MG SL (16:31)
[2017-02-08] MEDS ORDERED: MELATONIN5 M1 PO (16:31)
[2017-02-10] MEDS ORDERED: AUG875 PO (16:35)
[2017-02-14] MEDS ORDERED: AUG875 PO (17:39)
[2017-02-15] MEDS ORDERED: NORV5 PO (17:12)
[2017-03-24] MEDS ORDERED: ABILIFY5 PO (13:34)
[2017-04-11] MEDS ORDERED: AMB5 PO (23:00)
[2017-04-11] MEDS ORDERED: PAX20 PO (23:01)
[2017-04-12] MEDS ORDERED: SINGULAIR1 PO (14:40)
[2017-04-12] MEDS ORDERED: DEMA10T PO (14:40)
[2017-04-14] MEDS ORDERED: DURICEF PO (11:17)
[2017-04-14] MEDS ORDERED: MIRALAX POWDER1 PKT PO (11:18)
[2017-04-14] MEDS ORDERED: NEUR100 PO (11:19)
== END 2016-10-06 14:24 | disposition home or self-care (01) ==
LOC: ER 09:23 → CDU1 11:57
PROVIDERS: Emergency Medicine; Internal Medicine
DX: N39.0 Urinary tract infection, site not specified (principal); R41.82 Altered mental status, unspecified; E87.6 Hypokalemia; G43.909 Migraine, unspecified, not intractable, without status migrainosus; I25.10 Atherosclerotic heart disease of native coronary artery without angina pectoris; I73.9 Peripheral vascular disease, unspecified; E78.00 Pure hypercholesterolemia, unspecified; F32.9 Major depressive disorder, single episode, unspecified; M19.90 Unspecified osteoarthritis, unspecified site; F41.9 Anxiety disorder, unspecified; I10 Essential (primary) hypertension; I25.2 Old myocardial infarction; E78.5 Hyperlipidemia, unspecified; E03.9 Hypothyroidism, unspecified; J44.9 Chronic obstructive pulmonary disease, unspecified; I48.91 Unspecified atrial fibrillation; G62.9 Polyneuropathy, unspecified; Z90.49 Acquired absence of other specified parts of digestive tract; Z98.890 Other specified postprocedural states; Z79.82 Long term (current) use of aspirin; Z79.899 Other long term (current) drug therapy; Z79.02 Long term (current) use of antithrombotics/antiplatelets; Z87.891 Personal history of nicotine dependence
CPT/HCPCS: 36600; 71010; 80048; 80305; 80307; 81001; 82805; 83735; 84484; 85025; 85610; 85730; 87086; 93005; 96372; 96374; 99285; A9270-GY; G0378

== ENCOUNTER 2016-10-24 23:46 | Inpatient (IN) | payer MEDICARE ==
--- NOTE | ~2016-10-24 | DS ---
Discharge Summary [facility] [address] [place]. [address] NAME: LUIS ALFREDO KHAN : 48 STATUS : DIS IN PAT#: [id number] AGE: 65 ADM/REG DATE : 10/25/16 MR#: [id number] REPORT SERV DATE: 10/29/16 DICTATED BY: KRYSTLE TIDWELL DATE: 10/28/16 REPORT STATUS : Draft TRANSCRIBED BY: MODL DATE: 10/28/16 ADMISSION DATE: 10/25/2016 DISCHARGE DATE: 10/28/2016 CONSULTANTS: Dr. Doyle Gonzalez of Urology. DISCHARGE DIAGNOSES: 1. Volume depletion with orthostatic hypotension, probably due to diarrhea. 2. Suspected urinary tract infection. 3. Acute kidney injury, transient, resolved. 4. Metabolic encephalopathy. 5. Underlying senile dementia. 6. Old stroke. 7. Recent diarrhea possibly due to gastroenteritis. 8. Chronic neurogenic bladder with chronic stable right hydronephrosis. 9. Obesity with body mass index of 35.3 with suspected obstructive sleep apnea. 10.Chronic pain in spine and legs. 11.Hypertension with recent report of blood pressures lower at home even before the diarrhea. 12.Hypothyroidism. 13.Chronic obstructive pulmonary disease with chronic 2 L supplemental oxygen. 14.Recent left groin wound requiring long stay at [place] for wound healing. HISTORY: Reportedly at home, she had diarrhea, was feeling lightheaded when she stood up. She was a bit more confused than her baseline, it is lower than her baseline. She does have chronic dementia. She has had multiple episodes of metabolic encephalopathy. She came to the emergency room because the family is concerned about this. Reportedly, there was an episode when they got her up to the bathroom where she got glassy eyed and was unresponsive or poorly responsive for a short time. In the emergency room, she was noted to have orthostatic drop of her blood pressure from 180/93 to 123/80. She was referred to our team because of this, and her creatinine was elevated at 1.38. She was given some IV fluids. Her Demodex was held. Urine was obtained. The states it was by a straight cath by the ER staff; however, the ER staff documented that it was a "clean catch." It grew out greater than 100,000 coagulase-negative staph. She did have imaging of her renal system with an ultrasound showing right hydronephrosis. This was felt to be fairly stable with findings on CT of 05/12/2016. Dr. Gonzalez of Urology saw the patient, his partner, Dr. Bhagat follows the patient regularly. She has chronic incontinence as well as a history of neurogenic bladder. Apparently in the past, the was doing three times a day straight cath, but he just quit doing that and has her in pull-ups because she is incontinent as well. I have advised the to start doing straight cath again t.i.d. to try to lessen the retention, to lessen the risk of urinary infection, and lessen the risk of hydronephrosis and renal failure. Dr. Gonzalez is recommending suppressive doxycycline at bedtime because she is allergic to penicillin and sulfa. The patient has significant obesity. She is already on home oxygen. Her blood gas here on 10/27/2016 are pH 7.34, pCO2 of 62, pO2 of 57, and bicarbonate 32.7. This was on 28% Discharge Summary [address] [address] NAME: LUIS ALFREDO KHAN : 48 STATUS : DIS IN PAT#: [id number] AGE: 65 ADM/REG DATE : 10/25/16 MR#: [id number] REPORT SERV DATE: 10/29/16 DICTATED BY: KRYSTLE TIDWELL DATE: 10/28/16 REPORT STATUS : Draft TRANSCRIBED BY: PALAK DATE: 10/28/16 oxygen. She is a high risk for obstructive sleep apnea. We are recommending that her PCP have her set up for a sleep study in the near future. The patient also has underlying senile dementia, and whenever she is hospitalized, the change of routine as well as illness seems to cause her to have more metabolic encephalopathy. The patient might be considered for referral to Neurology to consider other interventions beyond the Aricept to try to slow her dementia progression. I talked with the patient and her about this. At the time of discharge, she is ambulating a little bit that she normally does, she is eating, she is wearing her baseline oxygen. DISCHARGE MEDICATIONS: Include aspirin 81 mg daily; Lipitor 40 mg daily; Wellbutrin 75 mg twice a day; Coreg 12.5 mg b.i.d.; Plavix 75 mg daily; vitamin B12 of 1000 mcg daily; Aricept 5 mg at bedtime; Flonase nasal spray daily; Synthroid 125 mcg daily (TSH 2.22 during this hospitalization); Ativan has been reduced from 1 to 0.5 mg t.i.d., hold for sedation; Singulair 10 mg p.o. daily; Protonix 40 mg daily; Paxil 30 mg daily; Tylenol 650 q.4 hours p.r.n. mild pain; nitroglycerin 0.4 mg p.r.n. chest pain; Apresoline 25 mg q.8 hours if systolic greater than 180 or diastolic greater than 110; albuterol nebulized p.r.n.; torsemide 10 mg daily, but hold if diarrhea. We are stopping Ambien (again with her weight and pulmonary problems. She is at risk for obesity hypoventilation). Percocet 10/325 p.r.n. pain which is a chronic medicine. We are stopping her Norvasc as her blood pressure has been running low at home; here it is a variable from normal low to elevated. PCP will have to help hand sander long-term whether she should have any additional blood pressure medicines added or subtracted. Doxycycline 100 mg q.h.s. started by her urologist to prevent urine infections. She is to see her PCP, Dr. Tatum, within the next week for referral for Neurology and sleep study if PCP agrees, and she is to follow up with Dr. Bhagat of Urology in one to two weeks. I spent 36 minutes today with the patient and her with discharge plans. RSG/MODL Krystle Tidwell M.D. / [id number] CC: Dima Abdul MD Stephen Dreskin, M.D. Kymber Habenicht, M.D. Discharge Summary [facility] [address] [place] [address] NAME: LUIS ALFREDO KHAN : [birth year] STATUS : DIS IN [facility]#: [id number] AGE: 65 ADM/REG DATE : 10/25/16 MR#: [id number] REPORT SERV DATE: 10/29/16 DICTATED BY: KRYSTLE TIDWELL DATE: 10/28/16 REPORT STATUS : Draft TRANSCRIBED BY: PALAK DATE: 10/28/16 Lan Lawson M.D. Zaki Calderon M.D., F.A.C.C.
--- NOTE | ~2016-10-24 | CN ---
Consultation Report [facility] [address] [place]. [address] NAME: LUIS ALFREDO BARBA : [birth year] STATUS : ADM IN PAT#: [id number] AGE: 65 ADM/REG DATE : 10/25/16 MR#: [id number] REPORT SERV DATE: 10/26/16 DICTATED BY: CECELIA RAMIREZ DATE: 10/26/16 REPORT STATUS : Draft TRANSCRIBED BY: MODRhett DATE: 10/26/16 DATE OF CONSULTATION: CHIEF COMPLAINT: Recurring urinary tract infections. HISTORY OF PRESENT ILLNESS: Ms Barba is a 65 year old with multiple medical comorbidities. She has had problems with urinary tract infections and chronic urinary incontinence for more than ten years. She often feels like she has UTIs. On some occasions, cultures were positive. On other occasions, urine cultures showed no growth. She is admitted with another possible urinary tract infection. They checked a clean-catch specimen. This is growing a Strep species. She is on cefepime. Her typical UTI symptoms involve headaches and confusion. Renal ultrasound was checked this admission. Radiology reports some mild right hydronephrosis without good visualization of the ureter. CT scan from last 2015 showed minimal if any right hydronephrosis. There were no stones. Procalcitonin level upon admission was less than 0.05 suggesting that there was not an infectious process going on. Urine culture is growing a Staph species that is agglutination negative. In August 2016, there was Enterococcus faecalis from the urine culture. In 2015, she had a Klebsiella- positive urine culture. In 2014, she had Klebsiella pneumoniae. In 2013, she had Pseudomonas aeruginosa, as well as one culture showing yeast. PAST MEDICAL HISTORY: Stroke, tardive dyskinesia, coronary artery disease, status post angioplasty and stent placement, hypercholesterolemia, asthma, hypertension, chronic pain, chronic benzodiazepine use, peripheral arterial disease, COPD, atrial fibrillation, hypothyroidism, lumbar spine infection, appendectomy, cholecystectomy, lumbar spine fusion, and hernia repair. ALLERGIES: SULFA (MOUTH SWELLING), MORPHINE (CONFUSION), CODEINE, DEMEROL, PENICILLIN; UNKNOWN REMOTE REACTION. SOCIAL HISTORY: She lives at home. She ambulates with a walker. Three children. REVIEW OF SYSTEMS: Positive for chronic incontinence and intermittent confusion. FAMILY HISTORY: Coronary artery disease and cancers. HOME MEDICATIONS: Norvasc, aspirin, Lipitor, Wellbutrin, Coreg, Plavix, Aricept, Flonase, hydralazine, Synthroid, Ativan, Singulair, nitroglycerin, Paxil, Demadex, and Ambien. PHYSICAL EXAMINATION: VITAL SIGNS: Temperature 96.9. She has been afebrile throughout this admission, pulse 55, blood pressure 180/93, and respirations 16. GENERAL: Chronically ill, mildly confused, 65 year old appearing, much older than stated age. She is obese, but in no acute distress. HEENT: Sclerae anicteric. Oropharynx clear. Consultation Report [facility] [address] [place]. [address] NAME: LUIS ALFREDO BARBA : [birth year] STATUS : ADM IN [facility]#: [id number] AGE: 65 ADM/REG DATE : 10/25/16 MR#: [id number] REPORT SERV DATE: 10/26/16 DICTATED BY: CECELIA RAMIREZ DATE: 10/26/16 REPORT STATUS : Draft TRANSCRIBED BY: MODL DATE: 10/26/16 HEART: Regular rate and rhythm. CHEST: Clear anteriorly. ABDOMEN: Soft, obese. No palpable masses. No rebound or guarding. No right or left CVA tenderness. PELVIC: Deferred. There is no indwelling Ferrell catheter. EXTREMITIES: No lower extremity edema. NEUROLOGIC: She is oriented to person, place, and situation. Affect is flat. LABORATORY DATA: White blood cell count was 6 upon admission. Creatinine 1.38 upon admission, now 1.1, which appears to be her baseline. IMPRESSION: 1. History of urinary tract infection. 2. Minimal right hydronephrosis, possibly secondary to reflux. PLAN: 1. I do not think that her current symptoms are related to UTI. The voided urine is entirely consistent with a contaminant. She reports that she did well with suppressive antibiotic in the past. Her reported allergies to penicillin and sulfa make suppression difficult. I have left a prescription for suppressive doxycycline for her to use over the next six months. 2. I do not think that Ms Barba's chronic urinary incontinence or intermittent urinary tract infections have a correctable underlying etiology. I discussed this with her family at the bedside. [facility]/PALAK Cecelia Ramirez M.D. / [id number] CC: Dima Abdul MD
--- NOTE | ~2016-10-24 | HP ---
History And Physical [place] [id number] [facility] [place]. [address] NAME: LUIS ALFREDO KHAN : [birth year] STATUS : ADM Kathleen PAT#: [id number] AGE: 65 ADM/REG DATE : 10/24/16 MR#: [id number] REPORT SERV DATE: 10/25/16 DICTATED BY: ANTONIO SULTANA DATE: 10/25/16 REPORT STATUS : Draft TRANSCRIBED BY: MODL DATE: 10/25/16 DATE OF ADMISSION: 10/24/2016 CHIEF COMPLAINT: A 65-year-old female presenting with dizziness and an episode of incoherence and unresponsiveness. HISTORY OF PRESENTING ILLNESS: The patient's history was obtained through careful interview with the patient and her , coupled with review of [facility] medical records. The patient states that just on the day prior to admission, she began to feel "funny." She has had orthostatic symptoms and feeling "topsy-turvy" with lightheadedness. Then, on the day of admission, she found that she could not even walk, she was so weak, and she states that she was "wobbling everywhere". Then, she went to use the bathroom in the evening and the describes a period after she got up from the bathroom in which she became glassy eyed and unresponsive to his vocal stimuli and shaking her for about 10 minutes, and then she gradually came back to responsiveness afterwards. She developed a headache early on the day of admission that resolved by the time of evaluating her. Was on the top and back of her head, aching quality, 8/10 severity. She has also had some slight diarrhea just on the day leading up to admission. She has had difficulty with urine flow and some urinary frequency, but no dysuria. No shortness of breath. No chest pain. No fevers or chills. No rash. No abdominal pain. No nausea or vomiting. REVIEW OF SYSTEMS: Otherwise, a 14-point review of systems was obtained and was negative. PAST MEDICAL HISTORY: 1. Stroke. 2. Tardive dyskinesias. 3. Coronary artery disease, status post stent placement under the care of Dr. Calderon. 4. Recurrent urinary tract infections, previously with Stenotrophomonas, Pseudomonas, and with Klebsiella bacteremia. 5. Neurogenic bladder and right hydronephrosis, seen by Dr. Gonzalez. 6. Elevated cholesterol. 7. Asthma. 8. Hypertension. 9. Chronic pain management. 10.Depression and anxiety, on chronic benzodiazepines. History And Physical [address] [address] NAME: LUIS ALFREDO KHAN : [birth year] STATUS : ADM Kathleen PAT#: [id number] AGE: 65 ADM/REG DATE : 10/24/16 MR#: [id number] REPORT SERV DATE: 10/25/16 DICTATED BY: ANTONIO SULTANA DATE: 10/25/16 REPORT STATUS : Draft TRANSCRIBED BY: PALAK DATE: 10/25/16 11.Peripheral arterial disease, status post stent placement under the care of Dr. Lawson. 12.B12 and folate deficiency. 13.COPD, on chronic 2 L nasal cannula oxygen. 14.Atrial fibrillation and atrial flutter. 15.Urinary tract infections. 16.Hypothyroidism. 17.Neuropathy. 18.Lumbar spine postoperative infection. PAST SURGICAL HISTORY: 1. Appendectomy. 2. Cholecystectomy. 3. Lumbar spine fusion from L3 to S1. 4. Hernia repair. 5. Left groin pseudoaneurysm repair. ALLERGIES: SULFA, MORPHINE, CODEINE, AND DEMEROL. SOCIAL HISTORY: Quit smoking in 2014. No alcohol abuse. Has been remarried. Her in good health. They live in [place], [place]. 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 She ambulates with a walker. Is seen by [facility]. Has three children. FAMILY HISTORY: Sister with heart disease. A strong family history of cancer. CURRENT MEDICATIONS: Include albuterol inhaler, Norvasc 5 mg p.o. daily, aspirin 81 mg daily, Lipitor 40 mg p.o. daily, Wellbutrin 75 mg p.o. b.i.d., Coreg 12.5 mg p.o. b.i.d., Plavix 75 mg p.o. daily, vitamin B12, Aricept 5 mg p.o. daily, Flonase, hydralazine 25 mg p.o. q.8 hours p.r.n., Synthroid 125 mcg p.o. daily, Ativan 1 mg p.o. t.i.d., Singulair 10 mg p.o. daily, nitroglycerin, Percocet p.r.n., Protonix 40 mg p.o. daily, Paxil 30 mg p.o. daily, Demadex 10 mg p.o. daily, Ambien 5 mg p.o. q.h.s. PHYSICAL EXAMINATION: VITAL SIGNS: Temperature 96.9, pulse 55, blood pressure 180/93, respiratory rate 16, O2 saturation 96% on 4 L nasal cannula. GENERAL: A chronically ill-appearing female, in no evidence of acute distress though. HEENT: Pupils equal, round, and reactive to light. No conjunctival pallor. No scleral icterus. Nares are patent. Oropharynx is clear of obstruction. Dry mucous membranes. NECK: Trachea midline. No thyromegaly. LYMPH: No cervical lymphadenopathy. No supraclavicular lymphadenopathy. RESPIRATORY: Clear to auscultation at bases. No wheezes, rales, or rhonchi. Normal respiratory effort. CARDIOVASCULAR: Bradycardic. Regular rhythm. No murmurs, rubs, or gallops. No extremity edema is appreciated at this time. ABDOMEN: Soft, nontender, nondistended. Normal bowel sounds auscultated throughout. No organomegaly. History And Physical [address] [address] NAME: LUIS ALFREDO KHAN : [birth year] STATUS : ADM Kathleen PAT#: [id number] AGE: 65 ADM/REG DATE : 10/24/16 MR#: [id number] REPORT SERV DATE: 10/25/16 DICTATED BY: ANTONIO SULTANA DATE: 10/25/16 REPORT STATUS : Draft TRANSCRIBED BY: PALAK DATE: 10/25/16 DERMATOLOGICAL: Warm and dry. EXTREMITIES: No pallor. No cyanosis. PSYCHIATRIC: Flattened affect. Claims to be in a good mood. She is alert and oriented x3. Orthostatics show drop of her blood pressure from 180/93 to 123/80 with a stable pulse in the 50s and then when she stands up, her blood pressure actual becomes unreadable and she becomes overtly dizzy and orthostatic, and has to sit back down and lay back down. LABORATORY DATA: White blood cell count 6.2, hemoglobin 14, hematocrit 43, platelets 180. Sodium 142, potassium 3.5, chloride 101, bicarb 32, BUN 14, creatinine 1.38 from baseline creatinine of 1.1, glucose 97. Brain natriuretic peptide 560. Troponin 0.07. Urinalysis shows 178 white blood cells, large leukocyte esterase. STUDIES: 1. Chest x-ray by my own evaluation shows cardiomegaly, stable compared to 09/2016. 2. EKG by my own evaluation shows sinus bradycardia 54 beats per minute. 3. CT scan of the brain without contrast shows no acute intracranial process. ASSESSMENT AND PLAN: 1. Orthostatic hypotension. Place on IV fluids. Monitor closely. Hold diuretic. 2. Urinary tract infection. Check urine culture. Place on IV antibiotics. We will cover for Pseudomonas and Stenotrophomonas with cefepime. The patient has neurogenic bladder. Check ultrasound of the kidneys and bladder. History of hydronephrosis. 3. Acute kidney injury. Place on IV fluids. Hold diuretic. 4. Oxygen-dependent chronic obstructive pulmonary disease. 5. Paroxysmal atrial fibrillation. Check telemetry. 6. Elevated brain natriuretic peptide, but no evidence of volume overload. No lower extremity edema. The patient has dry mucous membranes and is orthostatic. KPL/MODL Antonio Sultana M.D. / [id number] CC: Dima Duarte MD
--- NOTE | ~2016-10-24 | PUL ---
[facility] [address] [place]. [address] NAME: LUIS ALFREDO KHAN : 48 STATUS : DIS IN PAT#: [id number] AGE: 65 ADM/REG DATE : 10/25/16 MR#: [id number] REPORT SERV DATE: 10/29/16 DICTATED BY: KAYLEN CONNELLY DATE: 10/29/16 REPORT STATUS : Draft TRANSCRIBED BY: MODL DATE: 10/29/16 PULMONARY FUNCTION TEST START DATE OF TESTIN10/26/2016 END DATE OF TESTIN10/27/2016. RESPIRATORY THERAPY COMMENTS: Supplemental oxygen increased from 2 L/minute flow rate to 3 L/minute flow rate due to an oxygen saturation of 83%. The supplemental oxygen was decreased back to 2 L/minute later on during testing in order to obtain an arterial blood gas. RESULTS: Total valid sampling time 6 hours 35 minutes and 2 seconds. Total time with an oxygen saturation less than 88%, 1 hours 7 minutes and 40 seconds. Oxygen desaturation event index 24.5. IMPRESSION: This study conducted partially with the patient breathing supplemental oxygen at a flow rate of 3 L/minute, otherwise breathing supplemental oxygen at a flow rate of 2 L/minute was abnormal. There was significant desaturation. The oxygen desaturation index is suggestive of possible sleep apnea. Recommend supplemental oxygen at a minimum flow rate of 3 L/minute. Would consider repeating overnight oximetry while the patient is breathing supplemental oxygen at this flow rate. Additionally, I recommend formal sleep study if clinically indicated. PS/PALAK Kaylen Connelly M.D. / [id number] CC: Dima Abdul MD
[2016-10-24 22:54] LABS: BASOPHILS 0.5 %; BASOPHILS ABSOLUTE 0.03 10/3/uL (0.0-0.16); EOSINOPHILS 2.9 %; EOSINOPHILS ABSOLUTE 0.18 10/3/uL (0.0-0.53); ER CBC TAT 0 Hrs 03 Mins; HEMOGLOBIN 13.6 g/dL (12.0-16.0); LYMPHOCYTES 29.8 %; LYMPHOCYTES ABSOLUTE 1.86 10/3/uL (0.67-4.30); MEAN CORPUS HGB CONC 31.9 g/dL (32.0-36.0); MEAN CORPUSCULAR HEMOGLOB 29.9 pg (26.0-34.0); MEAN CORPUSCULAR VOLUME 93.6 fL (80-100); MEAN PLATELET VOLUME 9.7 fL (9.2-13.0); MONOCYTES 6.7 %; MONOCYTES ABSOLUTE 0.42 10/3/uL (0.21-1.20); NEUTROPHILS 60.1 %; NEUTROPHILS ABSOLUTE 3.75 10/3/uL (2.02-8.40); PLATELET COUNT 180 10/3/uL (150-400); RBC DISTRIBUTION WIDTH 13.8 % (12.0-16.0); RED CELL COUNT 4.55 10/6/uL (4.0-5.6); WHITE BLOOD CELLS 6.2 10/3/uL (4.5-10.5)
[2016-10-24 22:55] LABS: HEMATOCRIT 42.6 % (36.0-48.0); MANUAL DIFF NO %
[2016-10-24 23:01] LABS: INTERNATIONAL NORMAL RATI 1.1 UNITS (-); PARTIAL THROMBO TIME 28.6 SEC (22.5-37.2); PROTIME (NOT ORD) 13.6 SEC (12.0-14.5)
[2016-10-24 23:13] LABS: CALCIUM, SERUM 8.1 MG/DL (8.5-10.4); CHLORIDE, SERUM 101 MMOL/L (96-112); CO2 (CARBON DIOXIDE) 32 MMOL/L (24-34); CREATININE 1.38 MG/DL (0.55-1.02); GFR AFRICAN AMERICAN 46 ML/MIN (>=60); GFR NON AFRICAN AMERICAN 40 ML/MIN (>=60); GLUCOSE, SERUM 97 MG/DL (60-99); POTASSIUM, SERUM 3.5 MMOL/L (3.5-5.3); SODIUM, SERUM 142 MMOL/L (135-148)
[2016-10-24 23:18] LABS: BUN (BLOOD UREA NITROGEN) 19 MG/DL (6-23)
[2016-10-24 23:19] LABS: CHEST PAIN PROFILE TAT 0 Hrs 28 Mins; TROPONIN I 0.07 NG/ML (<0.05)
[~2016-10-24 23:46] MED LIST changes: +LEVAQUIN750 MG PO
[2016-10-24 23:48] LABS: B NATRIURETIC PEPTIDE (BNP) 560.4 PG/ML (< 100.0)
[2016-10-25 01:56] LABS: ASCORBIC ACID (UR NOT ORDER) NEG (NEG); BILIRUBIN, URINE NEGATIVE (NEG); ER URINALYSIS TAT 0 Hrs 00 Mins; KETONE, URINE NEGATIVE (NEG); LEUKOCYTE ESTERASE(NOT OR LARGE (NEG); NITRITE (URINE) NEG (NEG); WBC (NOT ORDERED) (RFLEX) 178 (0-5)
[2016-10-25 13:41] LABS: BASOPHILS 0.4 %; BASOPHILS ABSOLUTE 0.02 10/3/uL (0.0-0.16); EOSINOPHILS 2.9 %; EOSINOPHILS ABSOLUTE 0.16 10/3/uL (0.0-0.53); HEMATOCRIT 38.7 % (36.0-48.0); HEMOGLOBIN 12.3 g/dL (12.0-16.0); IMMATURE GRANULOCYTES 0.2 %; IMMATURE GRANULOCYTES ABSOLUTE 0.01 10/3/uL (0.0-0.11); LYMPHOCYTES 22.5 %; LYMPHOCYTES ABSOLUTE 1.24 10/3/uL (0.67-4.30); MEAN CORPUS HGB CONC 31.8 g/dL (32.0-36.0); MEAN CORPUSCULAR HEMOGLOB 29.4 pg (26.0-34.0); MEAN CORPUSCULAR VOLUME 92.6 fL (80-100); MEAN PLATELET VOLUME 9.5 fL (9.2-13.0); MONOCYTES ABSOLUTE 0.33 10/3/uL (0.21-1.20); NEUTROPHILS ABSOLUTE 3.74 10/3/uL (2.02-8.40); PLATELET COUNT 166 10/3/uL (150-400); RBC DISTRIBUTION WIDTH 13.7 % (12.0-16.0); RED CELL COUNT 4.18 10/6/uL (4.0-5.6); WHITE BLOOD CELLS 5.5 10/3/uL (4.5-10.5)
[2016-10-25 13:43] LABS: MANUAL DIFF NO %
[2016-10-25 13:48] LABS: INTERNATIONAL NORMAL RATI 1.1 UNITS (-); PROTIME (NOT ORD) 14.2 SEC (12.0-14.5)
[2016-10-25 14:04] LABS: A/G RATIO 0.9 (0.7-1.9); ALBUMIN 2.9 G/DL (3.5-5.0); BUN (BLOOD UREA NITROGEN) 18 MG/DL (6-23); CALCIUM, SERUM 8.4 MG/DL (8.5-10.4); CHLORIDE, SERUM 103 MMOL/L (96-112); CO2 (CARBON DIOXIDE) 30 MMOL/L (24-34); CREATININE 1.33 MG/DL (0.55-1.02); GFR AFRICAN AMERICAN 48 ML/MIN (>=60); GFR NON AFRICAN AMERICAN 42 ML/MIN (>=60); GLOBULIN 3.4 G/DL (2.5-4.1); POTASSIUM, SERUM 3.5 MMOL/L (3.5-5.3); SGOT(AST) 16 U/L (5-40); SGPT(ALT) 11 U/L (5-65); SODIUM, SERUM 141 MMOL/L (135-148); TOTAL BILIRUBIN 0.4 MG/DL (0-1.2); TOTAL PROTEIN 6.3 G/DL (6.0-8.5)
[2016-10-25 14:06] LABS: ALKALINE PHOSPHATASE 72 U/L (45-117); GLUCOSE, SERUM 129 MG/DL (60-99)
[2016-10-25 14:45] LABS: PROCALCITONIN <0.05 ng/mL (<0.5)
[2016-10-25 17:34] LABS: ASCORBIC ACID (UR NOT ORDER) NEG (NEG); BILIRUBIN, URINE NEGATIVE (NEG); KETONE, URINE NEGATIVE (NEG); LEUKOCYTE ESTERASE(NOT OR LARGE (NEG); WBC (NOT ORDERED) (RFLEX) 73 (0-5)
[2016-10-26 07:24] LABS: HEMATOCRIT 36.7 % (36.0-48.0); HEMOGLOBIN 12.1 g/dL (12.0-16.0); MEAN CORPUSCULAR HEMOGLOB 30.1 pg (26.0-34.0); MEAN CORPUSCULAR VOLUME 91.3 fL (80-100); MEAN PLATELET VOLUME 9.7 fL (9.2-13.0); PLATELET COUNT 190 10/3/uL (150-400); RED CELL COUNT 4.02 10/6/uL (4.0-5.6); WHITE BLOOD CELLS 5.6 10/3/uL (4.5-10.5)
[2016-10-26 07:25] LABS: MANUAL DIFF YES %
[2016-10-26 07:45] LABS: BAND NEUTROPHILS 8 %; LYMPHOCYTES 20 %; LYMPHOCYTES ABSOLUTE (CALC) 1.12 10/3/uL (0.67-4.30); MONOCYTES 7 %; MONOCYTES ABSOLUTE (CALC) 0.39 10/3/uL (0.21-1.20); NEUTROPHILS ABSOLUTE (CALC) 4.09 10/3/uL (2.02-8.40); PLATELET ESTIMATE ADQ (ADEQUATE); RBC MORPHOLOGY NORM (NORMAL); SEGMENTED NEUTROPHIL (0) 65 %; TOTAL NUCLEATED CELLS 100
[2016-10-26 10:28] LABS: BUN (BLOOD UREA NITROGEN) 13 MG/DL (6-23); CALCIUM, SERUM 8.4 MG/DL (8.5-10.4); CHLORIDE, SERUM 104 MMOL/L (96-112); CO2 (CARBON DIOXIDE) 32 MMOL/L (24-34); CREATININE 1.16 MG/DL (0.55-1.02); GFR AFRICAN AMERICAN 57 ML/MIN (>=60); GFR NON AFRICAN AMERICAN 49 ML/MIN (>=60); GLUCOSE, SERUM 136 MG/DL (60-99); POTASSIUM, SERUM 3.4 MMOL/L (3.5-5.3); SODIUM, SERUM 144 MMOL/L (135-148)
[2016-10-26 10:58] LABS: PROCALCITONIN <0.05 ng/mL (<0.5)
[2016-10-27 05:46] LABS: BE (BASE EXCESS) 5.2 MEQ/L (0 +/- 2.5); CARBOXYHEMOGLOBIN 0.5 % (0-3); DEVICE HFNC; HCO3 (ACTUAL BICARBONATE) 32.7 MEQ/L (23-27); HEMOBLOGIN CONTENT 12.3 G/DL (12-16); INSTRUMENT SERIAL # 8083; METHEMOGLOBIN 0.1 % (0-3); O2 CONTENT 14.8 VOL% (18-24); PCO2 (CO2 TENSION) 62 MMHG (35-45); PO2 (O2 TENSION) 57 MMHG (79-93); SAMPLE Arterial; pH 7.34 (7.37-7.43)
[2016-10-27 07:00] LABS: BASOPHILS 0.4 %; BASOPHILS ABSOLUTE 0.02 10/3/uL (0.0-0.16); EOSINOPHILS 4.7 %; EOSINOPHILS ABSOLUTE 0.25 10/3/uL (0.0-0.53); HEMATOCRIT 37.4 % (36.0-48.0); HEMOGLOBIN 12.2 g/dL (12.0-16.0); LYMPHOCYTES 27.8 %; LYMPHOCYTES ABSOLUTE 1.47 10/3/uL (0.67-4.30); MEAN CORPUS HGB CONC 32.6 g/dL (32.0-36.0); MEAN CORPUSCULAR HEMOGLOB 30.3 pg (26.0-34.0); MEAN CORPUSCULAR VOLUME 92.8 fL (80-100); MEAN PLATELET VOLUME 9.5 fL (9.2-13.0); MONOCYTES 8.1 %; MONOCYTES ABSOLUTE 0.43 10/3/uL (0.21-1.20); NEUTROPHILS ABSOLUTE 3.11 10/3/uL (2.02-8.40); PLATELET COUNT 158 10/3/uL (150-400); RBC DISTRIBUTION WIDTH 13.6 % (12.0-16.0); RED CELL COUNT 4.03 10/6/uL (4.0-5.6); WHITE BLOOD CELLS 5.3 10/3/uL (4.5-10.5)
[2016-10-27 07:02] LABS: MANUAL DIFF NO %
[2016-10-27 07:19] LABS: BUN (BLOOD UREA NITROGEN) 11 MG/DL (6-23); CALCIUM, SERUM 8.4 MG/DL (8.5-10.4); CHLORIDE, SERUM 106 MMOL/L (96-112); CO2 (CARBON DIOXIDE) 28 MMOL/L (24-34); CREATININE 1.11 MG/DL (0.55-1.02); GFR AFRICAN AMERICAN 60 ML/MIN (>=60); GFR NON AFRICAN AMERICAN 52 ML/MIN (>=60); POTASSIUM, SERUM 3.5 MMOL/L (3.5-5.3); SODIUM, SERUM 142 MMOL/L (135-148)
[2016-10-27 07:20] LABS: GLUCOSE, SERUM 93 MG/DL (60-99)
[2016-10-28] MEDS ORDERED: DORYX100 MG PO (10:25)
[2016-10-28] MEDS ORDERED: ACETSUP325 PR (10:30)
[2016-10-28] MEDS ORDERED: NITROQUICK0.4 MG SL (10:32)
[2017-01-20] MEDS ORDERED: WELL75 PO (16:40)
[2017-01-20] MEDS ORDERED: PERCOCET 10/3251 TAB PO ×2 (16:40→16:41)
[2017-01-20] MEDS ORDERED: PLAVIX PO (16:40)
[2017-01-20] MEDS ORDERED: PROTONIX PO (16:40)
[2017-01-20] MEDS ORDERED: VIBRATAB100 MG PO (16:41)
[2017-01-20] MEDS ORDERED: ATV1 PO (16:41)
[2017-01-20] MEDS ORDERED: PAXIL30 MG PO (16:41)
[2017-01-20] MEDS ORDERED: SINGULAIR1 PO (16:42)
[2017-01-20] MEDS ORDERED: HALF81 PO (16:42)
[2017-01-20] MEDS ORDERED: CRANBERRY500 MG PO (16:42)
[2017-01-20] MEDS ORDERED: SYN125 PO (16:42)
[2017-01-20] MEDS ORDERED: COREG12 PO (16:44)
[2017-01-20] MEDS ORDERED: APRES25 PO (16:44)
[2017-01-20] MEDS ORDERED: CYANO1000T PO (16:45)
[2017-01-20] MEDS ORDERED: FOLIC ACID PO (16:45)
[2017-01-20] MEDS ORDERED: LIPITOR40 PO (16:46)
[2017-01-20] MEDS ORDERED: ARICEPT5 PO (16:46)
[2017-01-20] MEDS ORDERED: AMB5 PO (16:46)
[2017-01-20] MEDS ORDERED: DEMA10T PO (16:48)
[2017-01-20] MEDS ORDERED: FLONASE NAS (16:48)
[2017-01-20] MEDS ORDERED: NITROSTAT0.4 MG SL (16:48)
[2017-01-20] MEDS ORDERED: ACET500CAP PO (16:49)
[2017-01-20] MEDS ORDERED: NYSTATPOW TOP (16:50)
[2017-01-20] MEDS ORDERED: MYCOSOINT TOP (16:50)
[2017-01-24] MEDS ORDERED: CEFT5 PO (09:55)
[2017-01-24] MEDS ORDERED: NORV5 PO (09:55)
[2017-01-24] MEDS ORDERED: MIRALAX POWDER1 PKT PO (10:00)
[2017-01-24] MEDS ORDERED: MELATONIN5 M1 PO (10:04)
[2017-02-03] MEDS ORDERED: DEMA10T PO (11:45)
[2017-02-03] MEDS ORDERED: NITROSTAT0.4 MG PO (11:45)
[2017-02-03] MEDS ORDERED: AMB5 PO (11:46)
[2017-02-03] MEDS ORDERED: ATV1 PO (11:46)
[2017-02-03] MEDS ORDERED: PROTONIX PO (11:47)
[2017-02-03] MEDS ORDERED: SINGULAIR1 PO (11:47)
[2017-02-03] MEDS ORDERED: LIPITOR40 PO (11:47)
[2017-02-03] MEDS ORDERED: MONODOX100 MG PO (11:47)
[2017-02-03] MEDS ORDERED: COREG12 PO (11:47)
[2017-02-03] MEDS ORDERED: PLAVIX PO (11:48)
[2017-02-03] MEDS ORDERED: ENDOCET1 TA3 PO (11:48)
[2017-02-03] MEDS ORDERED: SYN125 PO (11:48)
[2017-02-03] MEDS ORDERED: VITAMIN B-121000 MC1 PO (11:49)
[2017-02-03] MEDS ORDERED: MELATONIN5 M1 PO (11:49)
[2017-02-03] MEDS ORDERED: FOLIC ACID400 MC1 PO (11:49)
[2017-02-03] MEDS ORDERED: PAXIL30 MG PO (11:50)
[2017-02-03] MEDS ORDERED: CRANBERRY500 MG PO (11:50)
[2017-02-03] MEDS ORDERED: ASAB PO (11:51)
[2017-02-03] MEDS ORDERED: ACET500CAP PO (11:54)
[2017-02-03] MEDS ORDERED: FLONASE NAS (11:55)
[2017-02-03] MEDS ORDERED: SPIRIVA INH (11:56)
[2017-02-03] MEDS ORDERED: MIRALAX POWDER1 PKT PO (11:56)
[2017-02-03] MEDS ORDERED: PAX20 PO (11:59)
[2017-02-03] MEDS ORDERED: WELL75 PO (11:59)
[2017-02-03] MEDS ORDERED: NYSTATPOW TOP (12:00)
[2017-02-03] MEDS ORDERED: APRES25 PO (12:02)
[2017-02-03] MEDS ORDERED: ARICEPT5 PO (12:02)
[2017-02-05] MEDS ORDERED: ATEN25 (13:49)
[2017-02-08] MEDS ORDERED: AMB5 PO (16:16)
[2017-02-08] MEDS ORDERED: ATV1 PO (16:16)
[2017-02-08] MEDS ORDERED: ARICEPT5 PO (16:16)
[2017-02-08] MEDS ORDERED: ATEN50 PO (16:16)
[2017-02-08] MEDS ORDERED: LIPITOR40 PO (16:17)
[2017-02-08] MEDS ORDERED: FOLIC ACID400 MC1 PO (16:17)
[2017-02-08] MEDS ORDERED: PLAVIX PO (16:19)
[2017-02-08] MEDS ORDERED: ZOFRAN4 PO (16:19)
[2017-02-08] MEDS ORDERED: PERCOCET 10/3251 TAB PO (16:19)
[2017-02-08] MEDS ORDERED: PROTONIX PO (16:20)
[2017-02-08] MEDS ORDERED: DEMA10T PO (16:20)
[2017-02-08] MEDS ORDERED: CRANBERRY500 MG PO (16:20)
[2017-02-08] MEDS ORDERED: SINGULAIR1 PO (16:20)
[2017-02-08] MEDS ORDERED: LEVOTHYROXIN125 MCG PO (16:20)
[2017-02-08] MEDS ORDERED: CYANO1000T PO (16:21)
[2017-02-08] MEDS ORDERED: WELL75 PO (16:21)
[2017-02-08] MEDS ORDERED: PAX20 PO (16:21)
[2017-02-08] MEDS ORDERED: ACET500CAP PO (16:21)
[2017-02-08] MEDS ORDERED: SPIRIVA INH (16:22)
[2017-02-08] MEDS ORDERED: NYSTATPOW TOP (16:22)
[2017-02-08] MEDS ORDERED: FLONASE NAS (16:28)
[2017-02-08] MEDS ORDERED: MIRALAX POWDER1 PKT PO (16:30)
[2017-02-08] MEDS ORDERED: HALF81 PO (16:30)
[2017-02-08] MEDS ORDERED: VIBRATAB100 MG PO (16:30)
[2017-02-08] MEDS ORDERED: APRES25 PO (16:30)
[2017-02-08] MEDS ORDERED: MELATONIN5 M1 PO (16:31)
[2017-02-08] MEDS ORDERED: NITROSTAT0.4 MG SL (16:31)
[2017-02-10] MEDS ORDERED: AUG875 PO (16:35)
[2017-02-14] MEDS ORDERED: AUG875 PO (17:39)
[2017-02-15] MEDS ORDERED: NORV5 PO (17:12)
[2017-03-24] MEDS ORDERED: ABILIFY5 PO (13:34)
[2017-04-11] MEDS ORDERED: AMB5 PO (23:00)
[2017-04-11] MEDS ORDERED: PAX20 PO (23:01)
[2017-04-12] MEDS ORDERED: DEMA10T PO (14:40)
[2017-04-12] MEDS ORDERED: SINGULAIR1 PO (14:40)
[2017-04-14] MEDS ORDERED: DURICEF PO (11:17)
[2017-04-14] MEDS ORDERED: MIRALAX POWDER1 PKT PO (11:18)
[2017-04-14] MEDS ORDERED: NEUR100 PO (11:19)
== END 2016-10-28 13:31 | disposition home or self-care (01) | DRG 682 ==
LOC: ER 23:46 → ER/OF 23:59 → 1SO 10-25 06:40
PROVIDERS: Emergency Medicine; Hospitalist; Internal Medicine
DX: N17.9 Acute kidney failure, unspecified (principal); G93.41 Metabolic encephalopathy; N39.0 Urinary tract infection, site not specified; E66.2 Morbid (severe) obesity with alveolar hypoventilation; Z99.81 Dependence on supplemental oxygen; I48.0 Paroxysmal atrial fibrillation; F03.90 Unspecified dementia, unspecified severity, without behavioral disturbance, psychotic disturbance, mood disturbance, and anxiety; E86.9 Volume depletion, unspecified; I12.9 Hypertensive chronic kidney disease with stage 1 through stage 4 chronic kidney disease, or unspecified chronic kidney disease; N13.30 Unspecified hydronephrosis; G89.29 Other chronic pain; I95.1 Orthostatic hypotension; Z68.35 Body mass index [BMI] 35.0-35.9, adult; E78.5 Hyperlipidemia, unspecified; N18.3 Chronic kidney disease, stage 3 (moderate); J45.909 Unspecified asthma, uncomplicated; J44.9 Chronic obstructive pulmonary disease, unspecified; F41.8 Other specified anxiety disorders; E78.00 Pure hypercholesterolemia, unspecified; R19.7 Diarrhea, unspecified; M54.9 Dorsalgia, unspecified; E03.9 Hypothyroidism, unspecified; K21.9 Gastro-esophageal reflux disease without esophagitis; F32.9 Major depressive disorder, single episode, unspecified; M79.669 Pain in unspecified lower leg; I25.10 Atherosclerotic heart disease of native coronary artery without angina pectoris; I25.2 Old myocardial infarction; N13.70 Vesicoureteral-reflux, unspecified; I73.9 Peripheral vascular disease, unspecified; G24.01 Drug induced subacute dyskinesia; Z79.82 Long term (current) use of aspirin; Z79.02 Long term (current) use of antithrombotics/antiplatelets; Z79.899 Other long term (current) drug therapy; Z79.891 Long term (current) use of opiate analgesic; Z87.891 Personal history of nicotine dependence; Z98.1 Arthrodesis status; Z86.73 Personal history of transient ischemic attack (TIA), and cerebral infarction without residual deficits; Z98.61 Coronary angioplasty status; Z87.440 Personal history of urinary (tract) infections; Z88.2 Allergy status to sulfonamides; Z88.5 Allergy status to narcotic agent; Z88.0 Allergy status to penicillin
CPT/HCPCS: 36600; 70450; 71010; 76775; 80048; 80053; 81001; 82140; 82805; 83735; 83880; 84145; 84443; 84484; 85025; 85610; 85730; 87086; 93005; 94762; 96374; 97161-GP; 99285; A9270-GY; G8978-CK-GP; G8979-CI-GP; J0692; J1200; J2405; J2930